=== PATIENT | male | born 1955 | race African-American/Black ===

== ENCOUNTER 2016-04-07 21:40 | Emergency (ER) | payer MEDICARE, MEDICAID ==
[2016-04-07] MEDS ORDERED: ASPIRIN 81 MG TABLET, CHEWABLE PO ONE (21:48)
--- NOTE | 2016-04-07 21:51 | ER Document Report ---
ED Medical Screen (RME) - General Stated Complaint: CHEST PAIN Time seen by provider: 21:50 Mode of Arrival: Medic Information source: Patient Notes: 60-year-old smoker, hypertensive, hyperlipidemic male called EMS after drinking alcohol today and sleeping for 4 hours because he woke up with right sided upper chest pain. It radiated to his central part of his chest when he arrived in the ER. History of CO with stents. TRAVEL OUTSIDE OF THE [place] IN LAST 30 DAYS: No - Related Data Allergies/Adverse Reactions: codeine Allergy (Verified 11/30/15 20:03) Past Medical History - Past Medical History Cardiac Medical History: Reports: Hx Hypercholesterolemia, Hx Hypertension Denies: Hx Coronary Artery Disease, Hx Heart Attack Pulmonary Medical History: Reports: Hx Pneumonia Denies: Hx Asthma, Hx Bronchitis, Hx COPD Neurological Medical History: Denies: Hx Cerebrovascular Accident, Hx Seizures GI Medical History: Reports: Hx Cirrhosis Musculoskeltal Medical History: Reports Hx Arthritis - Hands, arms Traumatic Medical History: Reports: Hx Fractures Past Surgical History: Reports: Hx Cardiac Catheterization, Hx Orthopedic Surgery - bilat arms - Immunizations Immunizations up to date: Yes Hx Diphtheria, Pertussis, Tetanus Vaccination: Yes
[2016-04-07 23:01] LABS: ABSOLUTE EOSINOPHILS # (AUTO) 0.1 10^3/uL (0.0-0.6); ABSOLUTE LYMPHOCYTES (AUTO) 1.8 10^3/uL (0.5-4.7); ABSOLUTE MONOCYTES (AUTO) 0.5 10^3/uL (0.1-1.4); ABSOLUTE NEUT (AUTO) 4.1 10^3/uL (1.7-8.2); BASOPHILS % (AUTO) 0.6 % (0-2); EOSINOPHILS % (AUTO) 1.3 % (0-6); HEMATOCRIT 36.3 % (37.9-51.0); HEMOGLOBIN 11.9 g/dL (13.5-17.0); HGB HCT DIFFERENCE -0.6; LYMPHOCYTES % (AUTO) 27.8 % (13-45); MEAN CORPUSCULAR HEMOGLOBIN 30.9 pg (27.0-33.4); MEAN CORPUSCULAR HGB CONC 32.7 g/dL (32.0-36.0); MEAN CORPUSCULAR VOLUME 95 fl (80-97); MONOCYTES % (AUTO) 8.3 % (3-13); RED BLOOD COUNT 3.85 10^6/uL (4.35-5.55); WHITE BLOOD COUNT 6.6 10^3/uL (4.0-10.5)
[2016-04-07 23:22] LABS: APPEARANCE,URINE CLEAR; BILIRUBIN,URINE NEGATIVE (NEGATIVE); GLUCOSE, URINE NEGATIVE (NEGATIVE); KETONES,URINE NEGATIVE (NEGATIVE); LEUKOCYTE ESTERASE,URINE NEGATIVE (NEGATIVE); NITRITE,URINE NEGATIVE (NEGATIVE); PROTEIN,URINE NEGATIVE (NEGATIVE); UROBILINOGEN,URINE NEGATIVE mg/dL (<2.0)
[2016-04-07 23:23] LABS: ALANINE AMINOTRANSFERASE 31 U/L (21-72); ALKALINE PHOSPHATASE 87 U/L (38-126); ANION GAP 12 (5-19); ASPARTATE AMINO TRANSFERASE 37 U/L (17-59); BILIRUBIN,TOTAL 0.4 mg/dL (0.2-1.3); BLOOD UREA NITROGEN 12 mg/dL (7-20); CALCIUM 9.3 mg/dL (8.4-10.2); CARBON DIOXIDE 25 mmol/L (22-30); CHLORIDE 104 mmol/L (98-107); CREATINE KINASE 232 U/L (55-170); CREATININE RESULT 0.78 mg/dL (0.52-1.25); GLUCOSE 76 mg/dL (75-110); LIPASE 61.8 U/L (23-300); POTASSIUM 4.5 mmol/L (3.6-5.0); SODIUM 140.5 mmol/L (137-145)
[2016-04-07 23:26] LABS: ALCOHOL < 10 mg/dL (NONE DETECTED)
[2016-04-07 23:34] LABS: CREATINE KINASE MB 0.92 ng/mL (<4.55)
[2016-04-07 23:37] LABS: URINE BARBITURATES SCREEN NEGATIVE; URINE METHADONE SCREEN NEGATIVE; URINE PHENCYCLIDINE SCREEN NEGATIVE
[2016-04-07 23:39] LABS: TROPONIN I < 0.012 ng/mL
[2016-04-08] MEDS ORDERED: METOCLOPRAMIDE HCL ORAL SOLN 10 MG/10 ML UDCUP PO ONE (00:38)
[2016-04-08] MEDS ORDERED: LIDOCAINE 2% VISCOUS SOLN 20 ML UDCUP PO ONE (00:38)
[2016-04-08] MEDS ORDERED: MAG HYDROX/AL HYDROX/SIMETH SUSP 30 ML UDCUP PO ONE (00:38)
--- NOTE | 2016-04-08 01:45 | ER Document Report ---
ED General - General Chief Complaint: Shoulder Pain Stated Complaint: CHEST PAIN Mode of Arrival: Medic Notes: Patient is a 60-year-old male with past medical history of coronary artery disease and hypertension who presents with an episode of chest pain that started approximately 6 hours prior to arrival. States that he was drinking heavily today, went to sleep and woke up with some right-sided chest pain that became retrosternal. This has spontaneously resolved at the time of my evaluation. States that when it was present was a dull, throbbing pain. Nothing improves or worsens the pain. States that he has pain like this on a near daily basis but that he has ran out of both his isosorbide dinitrate as well as nitroglycerin. States if he had had these medications he would not have come in to the emergency department. He has not seen his primary care physician regarding today's concerns. He denies any associated shortness of breath, nausea, vomiting, or diaphoresis. No history of DVT or pulmonary embolus. No history of aortic dissection or aneurysm TRAVEL OUTSIDE OF THE [place] IN LAST 30 DAYS: No - Related Data Allergies/Adverse Reactions: codeine Allergy (Verified 11/30/15 20:03) Past Medical History - General Information source: Patient - Social History Smoking Status: Current Every Day Smoker Frequency of alcohol use: Heavy Drug Abuse: None Lives with: Spouse/Significant other Family History: CAD Patient has suicidal ideation: No Patient has homicidal ideation: No - Past Medical History Cardiac Medical History: Reports: Hx Hypercholesterolemia, Hx Hypertension Denies: Hx Coronary Artery Disease, Hx Heart Attack Pulmonary Medical History: Reports: Hx Pneumonia Denies: Hx Asthma, Hx Bronchitis, Hx COPD Neurological Medical History: Denies: Hx Cerebrovascular Accident, Hx Seizures Renal/ Medical History: Denies: Hx Peritoneal Dialysis GI Medical History: Reports: Hx Cirrhosis Musculoskeltal Medical History: Reports Hx Arthritis - Hands, arms Traumatic Medical History: Reports: Hx Fractures Past Surgical History: Reports: Hx Cardiac Catheterization, Hx Orthopedic Surgery - bilat arms - Immunizations Immunizations up to date: Yes Hx Diphtheria, Pertussis, Tetanus Vaccination: Yes Review of Systems - Review of Systems Notes: Constitutional: Negative for fever. HENT: Negative for sore throat. Eyes: Negative for visual changes. Cardiovascular: Positive for chest pain that is now resolved Respiratory: Negative for shortness of breath. Gastrointestinal: Negative for abdominal pain, vomiting or diarrhea. Genitourinary: Negative for dysuria. Musculoskeletal: Negative for back pain. Skin: Negative for rash. Neurological: Negative for headaches, weakness or numbness. 10 point ROS negative except as marked above and in HPI. Physical Exam - Vital signs Vitals: Temp Pulse Resp BP Pulse Ox 98.2 F 56 L 18 160/75 H 97 04/07/16 21:48 04/07/16 21:48 04/07/16 21:48 04/07/16 21:48 04/07/16 21:48 Interpretation: Hypertensive, Bradycardic Notes: PHYSICAL EXAMINATION: GENERAL: Well-appearing, well-nourished and in no acute distress. HEAD: Atraumatic, normocephalic. EYES: Pupils equal round and reactive to light, extraocular movements intact, sclera anicteric, conjunctiva are normal. ENT: nares patent, oropharynx clear without exudates. Moist mucous membranes. NECK: Normal range of motion, supple without lymphadenopathy LUNGS: Breath sounds clear to auscultation bilaterally and equal. No wheezes rales or rhonchi. HEART: Regular rate and rhythm without murmurs ABDOMEN: Soft, nontender, normoactive bowel sounds. No guarding, no rebound. No masses appreciated. EXTREMITIES: Normal range of motion, no pitting or edema. No cyanosis. NEUROLOGICAL: No focal neurological deficits. Moves all extremities spontaneously and on command. PSYCH: Normal mood, normal affect. SKIN: Warm, Dry, normal turgor, no rashes or lesions noted. Course - Re-evaluation Re-evalutation: 04/08/16 01:43 Presentation of chest pain in an otherwise well appearing patient. Low clinical suspicion for ACS given clinical history, exam, EKG without ST elevations or depressions, and negative initial troponin. HEART score less than or equal to 3. PE also seems unlikely given clinical history, absence of tachycardia or dyspnea. CXR without evidence of pneumothorax or pneumonia. No widened mediastinum. Aortic dissection also seems unlikely given history, symmetric pulses, CXR, and vitals. Given reassuring evaluation, will plan for discharge home at this time with return precautions and follow-up recommendations. HEART score: H:0 E:0 A:0 R:2 T:0 - Vital Signs Vital signs: Temp Pulse Resp BP Pulse Ox 98.2 F 56 L 18 160/75 H 97 01/21/17 21:48 04/07/16 21:48 04/07/16 21:48 04/07/16 21:48 04/07/16 21:48 - Laboratory Result Diagrams: 04/07/16 22:54 04/07/16 22:54 Laboratory results interpreted by me: 04/07/16 04/07/16 22:54 22:54 RBC 3.85 L Hgb 11.9 L Hct 36.3 L RDW 15.0 H Creatine Kinase 232 H - Diagnostic Test Radiology reviewed: Image reviewed, Reports reviewed Radiology results interpreted by me: 04/08/16 01:39 Chest x-ray: No acute infiltrate - EKG Interpretation by Me Additional EKG results interpreted by me: 04/08/16 01:39 Sinus bradycardia. Rate 55. No ST elevations or depressions. QTc 394. Discharge - Discharge Clinical Impression: Chest pain Qualifiers: Chest pain type: unspecified Qualified Code(s): R07.9 - Chest pain, unspecified Condition: Good Disposition: HOME, SELF-CARE Additional Instructions: You were seen today for chest pain. The exact cause of your pain is unclear. However, based on your cardiac enzyme testing, chest x-ray, and EKG it does not appear that it is from an immediately life-threatening cause at this time. Although your testing here is normal is critical that you follow-up with your primary care physician for continued evaluation of this chest pain and possible stress testing. I recommended you see your physician within the next 24-48 hours to be evaluated for consideration of a stress test. Please return to emergency department immediately if you have worsening of your chest pain, shortness of breath, vomiting, become unable to exert yourself due to pain or difficulty breathing, you pass out, or have any pain that radiates into your arms, jaw, or back. Please also return if you have any additional symptoms that are concerning to you. Prescriptions: Isosorbide Mononitrate [Imdur 60 mg Tablet.er] 60 mg PO DAILY #30 tab.er.24h Nitroglycerin 0.4 mg SL PRN PRN #30 tab.subl PRN Reason: Referrals: ASHLEE WATERS MD [Primary Care Provider] - Follow up in 3-5 days
[2016-04-08 03:30] VITALS: BP 160/81
--- NOTE | 2016-04-08 10:07 | EKG REPORT ---
SEVERITY:- BORDERLINE ECG - SINUS RHYTHM BORDERLINE T ABNORMALITIES, INFERIOR LEADS BORDERLINE ST ELEVATION, ANTERIOR LEADS : Confirmed by: Cezar Ngo MD 08-Apr-2016 10:06:53
== END 2016-04-08 03:15 | disposition home or self-care (01) ==
LOC: ER 21:40
DX: R07.9 Chest pain, unspecified (principal); M25.519 Pain in unspecified shoulder; I25.10 Atherosclerotic heart disease of native coronary artery without angina pectoris; I10 Essential (primary) hypertension; F17.210 Nicotine dependence, cigarettes, uncomplicated
CPT/HCPCS: 93005; 99285; 36415; 82553; 80307 ×2; 82550; 83690; 85025; 80053; 81001; 84484; 71010; 93010; J3490; A9270

== ENCOUNTER 2016-04-11 09:09 | Observation (INO) | payer MEDICARE, MEDICAID ==
[2016-04-11 09:55] LABS: ABSOLUTE LYMPHOCYTES (AUTO) 1.1 10^3/uL (0.5-4.7); ABSOLUTE MONOCYTES (AUTO) 0.6 10^3/uL (0.1-1.4); ABSOLUTE NEUT (AUTO) 7.6 10^3/uL (1.7-8.2); BASOPHILS % (AUTO) 0.5 % (0-2); EOSINOPHILS % (AUTO) 0.2 % (0-6); HEMATOCRIT 37.1 % (37.9-51.0); HEMOGLOBIN 11.9 g/dL (13.5-17.0); HGB HCT DIFFERENCE -1.4; MEAN CORPUSCULAR HEMOGLOBIN 30.7 pg (27.0-33.4); MEAN CORPUSCULAR VOLUME 96 fl (80-97); MONOCYTES % (AUTO) 6.6 % (3-13); RED BLOOD COUNT 3.87 10^6/uL (4.35-5.55); RED CELL DISTRIBUTION WIDTH 14.7 % (11.5-14.0); SEGMENTED NEUTROPHILS % (AUTO) 80.7 % (42-78); WHITE BLOOD COUNT 9.4 10^3/uL (4.0-10.5)
[2016-04-11 10:06] LABS: ALANINE AMINOTRANSFERASE 41 U/L (21-72); ALBUMIN 3.4 g/dL (3.5-5.0); ALKALINE PHOSPHATASE 97 U/L (38-126); ANION GAP 12 (5-19); ASPARTATE AMINO TRANSFERASE 42 U/L (17-59); BILIRUBIN,TOTAL 0.5 mg/dL (0.2-1.3); BLOOD UREA NITROGEN 17 mg/dL (7-20); CALCIUM 8.4 mg/dL (8.4-10.2); CARBON DIOXIDE 20 mmol/L (22-30); CHLORIDE 107 mmol/L (98-107); CREATINE KINASE 280 U/L (55-170); CREATININE RESULT 0.86 mg/dL (0.52-1.25); GLUCOSE 73 mg/dL (75-110); POTASSIUM 4.6 mmol/L (3.6-5.0); SODIUM 138.7 mmol/L (137-145); TOTAL PROTEIN 6.8 g/dL (6.3-8.2)
[2016-04-11 10:14] LABS: CREATINE KINASE MB 1.01 ng/mL (<4.55)
[2016-04-11 10:19] LABS: TROPONIN I < 0.012 ng/mL
--- NOTE | 2016-04-11 10:44 | ER Document Report ---
Doctor's Note Notes: 04/11/16 10:44 Patient was presented to me by the advanced practitioner, we discussed the patient's case imaging and lab work concerns. Patient was evaluated by myself and I agree with the providers care plan
--- NOTE | 2016-04-11 10:47 | ER Document Report ---
ED Cardiac - General Chief Complaint: Chest Pain > 30 Stated Complaint: CHEST PAIN Notes: Patient is a 60 year old male complaining of sudden onset chest pain this morning. Patient has a known history of CAD, HTN, HLD and cardiac cath within the past 9 months with coronary stent placement. Unaware of stent locations as it was done at [facility]. States that he had sudden onset chest pain at 645 this morning lasting about an hour and a half located in the right that his chest and related to the substernal area and persisted for about an hour and half described as a pressure. He states that he has a prescription for nitroglycerin. He has not had it filled since he cannot afford it so he didn't have anything to take it called 911. EMS arrived on the scene gave him 2 nitroglycerin and 224 mg of aspirin to which she states that his chest pain responded positively they also put on Nitropaste on his chest when she sits is controlling his chest pain. Patient was previously seen here on 06/05 for chest pain that was discharged home Past medical history significant for coronary artery disease. States that's over the summer and had a stress test and cardiac catheter with stent placement. High blood pressure, high cholesterol, pneumonia, cirrhosis, osteoarthritis Past surgical history significant for cardiac catheter 2, bilateral arms for previous fractures Social history significant for [id number], daily alcohol use, social marijuana use. Primary care is Dr. Waters TRAVEL OUTSIDE OF THE [place] IN LAST 30 DAYS: No - Related Data Allergies/Adverse Reactions: codeine Allergy (Verified 04/11/16 09:22) Past Medical History - General Information source: Patient - Social History Smoking Status: Current Every Day Smoker Family History: CAD - Past Medical History Cardiac Medical History: Reports: Hx Hypercholesterolemia, Hx Hypertension Denies: Hx Coronary Artery Disease, Hx Heart Attack Pulmonary Medical History: Reports: Hx Pneumonia Denies: Hx Asthma, Hx Bronchitis, Hx COPD Neurological Medical History: Denies: Hx Cerebrovascular Accident, Hx Seizures Renal/ Medical History: Denies: Hx Peritoneal Dialysis GI Medical History: Reports: Hx Cirrhosis Musculoskeltal Medical History: Reports Hx Arthritis - Hands, arms Traumatic Medical History: Reports: Hx Fractures Past Surgical History: Reports: Hx Cardiac Catheterization, Hx Orthopedic Surgery - bilat arms - Immunizations Immunizations up to date: Yes Hx Diphtheria, Pertussis, Tetanus Vaccination: Yes Review of Systems - Review of Systems Constitutional: No symptoms reported EENT: No symptoms reported Cardiovascular: See HPI Respiratory: No symptoms reported Gastrointestinal: No symptoms reported Genitourinary: No symptoms reported Male Genitourinary: No symptoms reported Musculoskeletal: No symptoms reported Skin: No symptoms reported Hematologic/Lymphatic: No symptoms reported Neurological/Psychological: No symptoms reported Physical Exam - Vital signs Vitals: Resp Pulse Ox 16 98 04/11/16 09:15 04/11/16 09:15 - Notes Notes: PHYSICAL EXAM GENERAL: Alert, interacts well. HEAD: Normocephalic, atraumatic. EYES: Pupils equal, round, and reactive to light. Extraocular movements intact. ENT: Oral mucosa moist, tongue midline. Poor dentition NECK: Full range of motion. Supple. Trachea midline. LUNGS: Clear to auscultation bilaterally, no wheezes, rales, or rhonchi. No respiratory distress. HEART: Mild chest pain to palpation of the sternum. The patient denies this is his chest pain that he's been having. Regular rate and rhythm. No murmurs, gallops, or rubs. ABDOMEN: Soft, nondistended, nontender. No guarding, rebound, or rigidity.. Bowel sounds present in all 4 quadrants. EXTREMITIES: Moves all 4 extremities spontaneously. No edema, radial and dorsalis pedis pulses 2/4 bilaterally. No cyanosis. NEUROLOGICAL: Alert and oriented x3. Normal speech. PSYCH: Normal affect, normal mood. SKIN: Warm, dry, normal turgor. No rashes or lesions noted. Course - Re-evaluation Re-evalutation: 04/11/16 11:06 Chest x-ray without any evidence of any cardiopulmonary process. No evidence of widened mediastinum. No evidence of acute infiltrate Patient is a 60-year-old male who is hemodynamically stable, no acute distress and afebrile. Patient story is consistent with acute coronary syndrome without any EKG changes. Labs have revealed no leukocytosis, anemia. CMP within normal limits and no evidence of elevation in cardiac enzymes. Case discussed with primary care physician Moe who agrees for admission to the hospital for cardiac evaluation. Plan discussed the patient is agreeable. Per [facility] protocol and guidelines, this case was discussed with supervising physician Dr. Brii Iqbal prior to admission - Vital Signs Vital signs: Temp Pulse Resp BP Pulse Ox 12 165/83 H 99 04/11/16 10:01 04/11/16 10:01 04/11/16 10:01 - Laboratory Result Diagrams: 04/11/16 09:37 04/11/16 09:37 Laboratory results interpreted by me: 04/11/16 04/11/16 09:37 09:37 RBC 3.87 L Hgb 11.9 L Hct 37.1 L RDW 14.7 H Seg Neutrophils % 80.7 H Lymphocytes % 12.0 L Carbon Dioxide 20 L Glucose 73 L Creatine Kinase 280 H Albumin 3.4 L - Diagnostic Test Radiology reviewed: Image reviewed, Reports reviewed - EKG Interpretation by Me EKG shows normal: Sinus rhythm. abnormal: ST-T Waves Rate: Normal Rhythm: NSR When compared to previous EKG there are: No significant change - Consults Dr. Waters Reason for consultation: 04/11/16 11:08 Hospital admission Consulted provider: will come to ER Discharge - Discharge Clinical Impression: Chest pain Condition: Stable Disposition: ADMITTED INPATIENT Admitting Provider: Moe Unit Admitted: Telemetry Referrals: ASHLEE WATERS MD [Primary Care Provider] - Follow up as needed
[2016-04-11 12:24] LABS: PROTHROMBIN TIME 13.4 SEC (11.4-15.4)
[2016-04-11 12:25] LABS: PARTIAL THROMBOPLASTIN TIME 30.5 SEC (23.5-35.8)
[2016-04-11] MEDS ORDERED: ENOXAPARIN SODIUM INJ 40 MG/0.4 ML DISP.SYRIN SUBCUT ONE ×2 (13:00→18:30)
[2016-04-11 13:49] LABS: CREATININE RESULT 0.84 mg/dL (0.52-1.25)
--- NOTE | 2016-04-11 15:00 | EKG REPORT ---
SEVERITY:- ABNORMAL ECG - SINUS RHYTHM BORDERLINE LEFT AXIS DEVIATION ABNRM R PROG, CONSIDER ASMI OR LEAD PLACEMENT BORDERLINE T ABNORMALITIES, INFERIOR LEADS : Confirmed by: Lilliana Steel MD 11-Apr-2016 14:58:44
[2016-04-11 16:13] LABS: HEMATOCRIT 36.7 % (37.9-51.0); HEMOGLOBIN 11.9 g/dL (13.5-17.0); MEAN CORPUSCULAR HEMOGLOBIN 30.8 pg (27.0-33.4); MEAN CORPUSCULAR HGB CONC 32.5 g/dL (32.0-36.0); MEAN CORPUSCULAR VOLUME 95 fl (80-97); RED BLOOD COUNT 3.86 10^6/uL (4.35-5.55); RED CELL DISTRIBUTION WIDTH 14.5 % (11.5-14.0); WHITE BLOOD COUNT 8.1 10^3/uL (4.0-10.5)
[2016-04-11 16:43] LABS: CREATINE KINASE MB 0.89 ng/mL (<4.55); TROPONIN I 0.013 ng/mL
[2016-04-11] MEDS ORDERED: NITROGLYCERIN 0.4 MG/TAB 25 TAB/BOTTLE SL PRN (18:15)
[2016-04-11] MEDS ORDERED: OXYCODONE-ACETAMINOPHEN 5-325 MG TABLET PO PRN (18:15)
[2016-04-11] MEDS ORDERED: CLOPIDOGREL BISULFATE 75 MG TABLET PO ONE (18:45)
[2016-04-11] MEDS ORDERED: ATORVASTATIN CALCIUM 80 MG TABLET PO SCH (22:00)
[2016-04-11] MEDS ORDERED: CLOPIDOGREL BISULFATE 75 MG TABLET ONE (22:23)
[2016-04-11 23:16] LABS: TROPONIN I < 0.012 ng/mL
[2016-04-12 05:19] LABS: CREATINE KINASE MB 0.67 ng/mL (<4.55)
[2016-04-12 05:20] LABS: TROPONIN I < 0.012 ng/mL
[2016-04-12] MEDS ORDERED: ENOXAPARIN SODIUM INJ 40 MG/0.4 ML DISP.SYRIN SUBCUT SCH (08:00)
[2016-04-12] MEDS ORDERED: CLOPIDOGREL BISULFATE 75 MG TABLET PO SCH (10:00)
[2016-04-12 10:21] VITALS: BP 169/95
--- NOTE | 2016-04-12 18:57 | PDOC H&P ---
History of Present Illness Admission Date/PCP: 04/11/16 12:02 ASHLEE WATERS, History of Present Illness: CAROLINE FLORES is a 60 year old male, he has history of coronary artery disease, he came to the emergency room because of chest pain, the chest pain is non-discrept it was not provoked by exertion or emotion. He was seen in the emergency room and evaluated. Because of history of coronary artery disease emergency room providers want him admitted for evaluation and observation of his symptoms. Past Medical History Cardiac Medical History: Reports: Coronary Artery Disease, Hyperlipidema, Hypertension Pulmonary Medical History: Reports: Bronchitis, Chronic Obstructive Pulmonary Disease (COPD), Pneumonia GI Medical History: Reports: Cirrhosis Musculoskeltal Medical History: Reports: Arthritis - Hands, arms Past Surgical History Past Surgical History: Reports: Cardiac Catheterization, Orthopedic Surgery - bilat arms Social History Smoking Status: Current Every Day Smoker Cigarettes Packs Per Day: 1 Number of Years Smokin Last Time Smoked: 04/11/16 Frequency of Alcohol Use: Occasional Hx Recreational Drug Use: Yes Drugs: Marijuana Hx Prescription Drug Abuse: No Family History Family History: CAD Parental Family History Reviewed: Yes Children Family History Reviewed: Yes Sibling(s) Family History Reviewed.: Yes Medication/Allergy Home Medications: Atorvastatin Calcium [Lipitor 80 mg Tablet] 80 mg PO DAILY 04/11/16 Clopidogrel Bisulfate [Clopidogrel] 75 mg PO DAILY 04/11/16 Nitroglycerin [Nitrostat] 0.4 mg SL ASDIR PRN 04/11/16 Oxycodone HCl [Oxycodone HCl] 5 mg PO Q8 04/11/16 Oxycodone HCl/Acetaminophen [Oxycodone-Acetaminophen 5-325] 1 tab PO Q4HP PRN Allergies/Adverse Reactions: codeine Allergy (Verified 04/11/16 09:22) Review of Systems Eyes: ABSENT: visual disturbances Ears: ABSENT: hearing changes Cardiovascular: PRESENT: chest pain Respiratory: ABSENT: cough, hemoptysis Gastrointestinal: ABSENT: abdominal pain, constipation, diarrhea, hematemesis, hematochezia, nausea, vomiting Genitourinary: ABSENT: dysuria, hematuria Musculoskeletal: ABSENT: joint swelling Integumentary: ABSENT: rash, wounds Neurological: ABSENT: abnormal gait, abnormal speech, confusion, dizziness, focal weakness, syncope Psychiatric: ABSENT: anxiety, depression, homidical ideation, suicidal ideation Endocrine: ABSENT: cold intolerance, heat intolerance, menstrual abnormalities, polydipsia, polyuria Hematologic/Lymphatic: ABSENT: easy bleeding, easy bruising, lymphadenopathy Physical Exam Vital Signs: Temp Pulse Resp BP Pulse Ox 97.8 F 61 18 169/95 H 100 04/12/16 09:00 04/12/16 09:00 04/12/16 09:00 04/12/16 09:00 04/12/16 09:00 Intake & Output 04/11/16 04/12/16 04/13/16 06:59 06:59 06:59 Intake Total 254 Output Total 2 Balance 252 Weight 60.9 kg General appearance: PRESENT: no acute distress Eye exam: PRESENT: conjunctiva pink, EOMI, PERRLA Neck exam: PRESENT: full ROM Cardiovascular exam: PRESENT: RRR, +S1, +S2 Vascular exam: PRESENT: normal capillary refill GI/Abdominal exam: PRESENT: normal bowel sounds, soft Rectal exam: PRESENT: deferred Neurological exam: PRESENT: alert. ABSENT: motor sensory deficit Results Laboratory Results: 04/11/16 15:40 04/11/16 13:28 04/11/16 04/11/16 04/12/16 15:40 22:25 04:29 CK-MB (CK-2) 0.89 0.80 0.67 Troponin I 0.013 < 0.012 < 0.012 Impressions: Chest X-Ray 04/11/16 09:16 IMPRESSION: NO ACUTE RADIOGRAPHIC FINDING IN THE CHEST. Assessment & Plan - Diagnosis (1) Chest pain Qualifiers: Chest pain type: unspecified Qualified Code(s): R07.9 - Chest pain, unspecified Is this a current diagnosis for this admission?: YesPlan: Patient is admitted for observation (2) Coronary artery disease Qualifiers: Coronary Disease-Associated Artery/Lesion type: [place] artery [place] vs. transplanted heart: [place] heart Associated angina: without angina Qualified Code(s): I25.10 - Atherosclerotic heart disease of [place] coronary artery without angina pectoris
--- NOTE | 2016-04-12 19:02 | PDOC DISCHARGE SUMMARY ---
General - Admit/Disc Date/PCP Admission Date/Primary Care Provider: 04/11/16 12:02 SAMANTHADARLYN WATERS, Discharge Date: 04/12/16 - Discharge Diagnosis (1) Chest pain Is this a current diagnosis for this admission?: Yes (2) Coronary artery disease Is this a current diagnosis for this admission?: Yes - Additional Information Home Medications: Atorvastatin Calcium [Lipitor 80 mg Tablet] 80 mg PO DAILY 04/11/16 Clopidogrel Bisulfate [Clopidogrel] 75 mg PO DAILY 04/11/16 Nitroglycerin [Nitrostat] 0.4 mg SL ASDIR PRN 04/11/16 Oxycodone HCl [Oxycodone HCl] 5 mg PO Q8 04/11/16 Oxycodone HCl/Acetaminophen [Oxycodone-Acetaminophen 5-325] 1 tab PO Q4HP PRN History of Present Illness History of Present Illness: CAROLINE FLORES is a 60 year old male, he has history of coronary artery disease, he came to the emergency room because of chest pain, the chest pain is non-discrept it was not provoked by exertion or emotion. He was seen in the emergency room and evaluated. Because of history of coronary artery disease emergency room providers want him admitted for evaluation and observation of his symptoms. Hospital Course Hospital Course: Patient was admitted for chest pain evaluation, 3 sets of cardiac enzymes were negative for acute NE, he was supposed to have a nuclear stress test, but he left AGAINST MEDICAL ADVICE, he actually eloped from the hospital. Physical Exam Vital Signs: Temp Pulse Resp BP Pulse Ox 97.8 F 61 18 169/95 H 100 04/12/16 09:00 04/12/16 09:00 04/12/16 09:00 04/12/16 09:00 04/12/16 09:00 Intake & Output 04/11/16 04/12/16 04/13/16 06:59 06:59 06:59 Intake Total 254 Output Total 2 Balance 252 Weight 60.9 kg Physical Exam: Physical examination was not done. On discharge, because patient left before he was seen ,he eloped Results Laboratory Results: 04/11/16 15:40 04/11/16 13:28 04/11/16 04/11/16 04/12/16 15:40 22:25 04:29 CK-MB (CK-2) 0.89 0.80 0.67 Troponin I 0.013 < 0.012 < 0.012 Impressions: Chest X-Ray 04/11/16 09:16 IMPRESSION: NO ACUTE RADIOGRAPHIC FINDING IN THE CHEST.
== END 2016-04-12 09:00 | disposition left against medical advice (07) ==
LOC: ER 09:09 → INTOOBSV 11:29 → EH 11:29 → UNDOADMOB 11:29 → EH 12:02 → 5 20:55
PROVIDERS: ADMIT Internal Medicine; ATTEND Internal Medicine
DX: R07.9 Chest pain, unspecified (principal); I25.10 Atherosclerotic heart disease of native coronary artery without angina pectoris; E78.5 Hyperlipidemia, unspecified; I10 Essential (primary) hypertension; J44.9 Chronic obstructive pulmonary disease, unspecified; K74.60 Unspecified cirrhosis of liver; M19.90 Unspecified osteoarthritis, unspecified site; F17.210 Nicotine dependence, cigarettes, uncomplicated; Z82.49 Family history of ischemic heart disease and other diseases of the circulatory system
CPT/HCPCS: 93005; 99285; 36415 ×2; 82553 ×2; 82550; 82565; 85025; 85027; 85610; 85730; 80053; 84484 ×2; 71010; 93010; G0378 ×3; J1650; J3490 ×2; A9270 ×2

== ENCOUNTER 2016-06-13 23:55 | Observation (INO) | payer MEDICARE, MEDICAID ==
[2016-06-14] MEDS ORDERED: ASPIRIN 81 MG TABLET, CHEWABLE PO ONE (07:32)
--- NOTE | 2016-06-14 07:32 | ER Document Report ---
ED Cardiac - General Chief Complaint: Chest Pain Stated Complaint: CHEST PAIN Time seen by provider: 07:22 Mode of Arrival: Ambulatory Information source: Patient Notes: 60 yo htn, hyperlipedemic, smoker, male c/o left retrosternal chest pain since 9 pm last night. Came in by ambulance and was in the waiting room. Hx CAD, 2 Stents (last 14 months ago), daily etoh. no recent uri, no fever. I woke him up. TRAVEL OUTSIDE OF THE [place] IN LAST 30 DAYS: No - Related Data Allergies/Adverse Reactions: codeine Allergy (Verified 04/11/16 09:22) Home Medications: Current Home Medications Aspirin [Aspirin 81 mg Chewable Tablet] 81 mg PO DAILY 06/14/16 [History] Atorvastatin Calcium [Lipitor 80 mg Tablet] 80 mg PO QHS 06/14/16 [History] Clopidogrel Bisulfate [Plavix 75 mg Tablet] 75 mg PO DAILY 06/14/16 [History] Famotidine [Pepcid 20 mg Tablet] 20 mg PO QHS 06/14/16 [History] Gabapentin [Neurontin 300 mg Capsule] 300 mg PO TID 06/14/16 [History] Isosorbide Mononitrate [Imdur 60 mg Tablet.er] 60 mg PO DAILY 06/14/16 [History] Lisinopril/Hydrochlorothiazide [Zestoretic 20-12.5 mg Tablet] 1 tab PO DAILY [History] Metoprolol Tartrate [Lopressor 25 mg Tablet] 25 mg PO BID 06/14/16 [History] Nitroglycerin [Nitrostat 0.4 mg (1/150 Gr) Tabs 25/Bottle] 0.1 mg SL Q5MP PRN [History] Past Medical History - Social History Smoking Status: Current Every Day Smoker Frequency of alcohol use: Heavy Drug Abuse: None Family History: CAD Patient has suicidal ideation: No Patient has homicidal ideation: No - Past Medical History Cardiac Medical History: Reports: Hx Coronary Artery Disease, Hx Hypercholesterolemia, Hx Hypertension Denies: Hx Heart Attack Pulmonary Medical History: Reports: Hx Bronchitis, Hx COPD, Hx Pneumonia Denies: Hx Asthma Neurological Medical History: Denies: Hx Cerebrovascular Accident, Hx Seizures Renal/ Medical History: Denies: Hx Peritoneal Dialysis GI Medical History: Reports: Hx Cirrhosis Musculoskeltal Medical History: Reports Hx Arthritis - Hands, arms Traumatic Medical History: Reports: Hx Fractures Past Surgical History: Reports: Hx Cardiac Catheterization, Hx Orthopedic Surgery - bilat arms - Immunizations Immunizations up to date: Yes Hx Diphtheria, Pertussis, Tetanus Vaccination: Yes Review of Systems - Review of Systems Constitutional: No symptoms reported EENT: No symptoms reported Cardiovascular: See HPI Respiratory: No symptoms reported Gastrointestinal: No symptoms reported Genitourinary: No symptoms reported Male Genitourinary: No symptoms reported Musculoskeletal: No symptoms reported Skin: No symptoms reported Hematologic/Lymphatic: No symptoms reported Neurological/Psychological: No symptoms reported Physical Exam - Vital signs Vitals: Temp Pulse Resp BP Pulse Ox 97.3 F 67 18 150/82 H 99 06/14/16 00:13 06/14/16 00:13 06/14/16 00:13 06/14/16 00:13 06/14/16 00:13 Interpretation: Normal - General General appearance: Appears well, Alert In distress: None - HEENT Head: Normocephalic, Atraumatic Eyes: Normal Conjunctiva: Normal Pupils: PERRL Mucous membranes: Normal Pharynx: Normal Neck: Supple. No: Lymphadenopathy - Respiratory Respiratory status: No respiratory distress Chest status: Nontender Breath sounds: Normal Chest palpation: Normal - Cardiovascular Rhythm: Regular Heart sounds: Normal auscultation Murmur: No - Abdominal Inspection: Normal Distension: No distension Bowel sounds: Normal Tenderness: Nontender Organomegaly: No organomegaly - Back Back: Normal, Nontender. No: CVA tenderness - Extremities General upper extremity: Normal inspection, Nontender, Normal color, Normal ROM , Normal temperature General lower extremity: Normal inspection, Nontender, Normal color, Normal ROM , Normal temperature, Normal weight bearing. No: Sofya's sign - Neurological Neuro grossly intact: Yes Cognition: Normal Orientation: AAOx4 Franc Coma Scale Eye Opening: Spontaneous Preemption Coma Scale Verbal: Oriented Franc Coma Scale Motor: Obeys Commands Franc Coma Scale Total: 15 Speech: Normal Motor strength normal: LUE, RUE, LLE, RLE Sensory: Normal - Psychological Associated symptoms: Normal affect, Normal mood - Skin Skin Temperature: Warm Skin Moisture: Dry Skin Color: Normal Skin irregularity: negative: Rash Course - Re-evaluation Re-evalutation: 06/14/16 07:[address] Mcfadden notified that the patient has been in the waiting room and now in room 15 with no aspirin or labs done. He checked into the emergency room at 2355 last night. 06/14/16 10:[address] perez, pt did not get a nuclear stress test that was rec. his last hospitalization when he left against medical advice for dr. lara . 06/14/16 12:[address] lara who will admit to observation telemetry unit. - Vital Signs Vital signs: Temp Pulse Resp BP Pulse Ox 97.6 F 59 L 16 171/99 H 100 06/14/16 17:30 06/14/16 17:30 06/14/16 17:30 06/14/16 17:30 06/14/16 13:30 - Laboratory Result Diagrams: 06/14/16 07:40 06/14/16 07:40 Laboratory results interpreted by me: 06/14/16 06/14/16 07:40 07:40 RBC 3.21 L Hgb 10.2 L Hct 30.1 L RDW 15.2 H Chloride 111 H Creatine Kinase 224 H Total Protein 5.8 L Albumin 3.1 L Discharge - Discharge Clinical Impression: Chest pain Qualifiers: Chest pain type: unspecified Qualified Code(s): R07.9 - Chest pain, unspecified Disposition: ELOPED Admitting Provider: Moe Unit Admitted: Telemetry
--- NOTE | 2016-06-14 08:18 | EKG REPORT ---
SEVERITY:- ABNORMAL ECG - SINUS RHYTHM PROBABLE ANTEROSEPTAL INFARCT, OLD : Confirmed by: Landon mAes 14-Jun-2016 08:17:26
[2016-06-14 08:29] LABS: ABSOLUTE EOSINOPHILS # (AUTO) 0.1 10^3/uL (0.0-0.6); ABSOLUTE LYMPHOCYTES (AUTO) 1.5 10^3/uL (0.5-4.7); ABSOLUTE MONOCYTES (AUTO) 0.6 10^3/uL (0.1-1.4); BASOPHILS % (AUTO) 0.6 % (0-2); EOSINOPHILS % (AUTO) 2.1 % (0-6); HEMATOCRIT 30.1 % (37.9-51.0); HEMOGLOBIN 10.2 g/dL (13.5-17.0); HGB HCT DIFFERENCE 0.5; LYMPHOCYTES % (AUTO) 28.4 % (13-45); MEAN CORPUSCULAR HEMOGLOBIN 31.7 pg (27.0-33.4); MEAN CORPUSCULAR HGB CONC 33.8 g/dL (32.0-36.0); MEAN CORPUSCULAR VOLUME 94 fl (80-97); MONOCYTES % (AUTO) 11.6 % (3-13); RED BLOOD COUNT 3.21 10^6/uL (4.35-5.55); RED CELL DISTRIBUTION WIDTH 15.2 % (11.5-14.0); SEGMENTED NEUTROPHILS % (AUTO) 57.3 % (42-78); WHITE BLOOD COUNT 5.2 10^3/uL (4.0-10.5)
[2016-06-14] MEDS ORDERED: ACETAMINOPHEN 325 MG TABLET PO ONE (08:30)
[2016-06-14 08:31] LABS: ALANINE AMINOTRANSFERASE 39 U/L (21-72); ALBUMIN 3.1 g/dL (3.5-5.0); ALKALINE PHOSPHATASE 95 U/L (38-126); ANION GAP 7 (5-19); ASPARTATE AMINO TRANSFERASE 44 U/L (17-59); BILIRUBIN,DIRECT 0.3 mg/dL (0.0-0.4); BILIRUBIN,TOTAL 0.3 mg/dL (0.2-1.3); BLOOD UREA NITROGEN 17 mg/dL (7-20); CALCIUM 8.7 mg/dL (8.4-10.2); CARBON DIOXIDE 23 mmol/L (22-30); CHLORIDE 111 mmol/L (98-107); CREATINE KINASE 224 U/L (55-170); GLUCOSE 105 mg/dL (75-110); POTASSIUM 4.6 mmol/L (3.6-5.0); SODIUM 141.4 mmol/L (137-145); TOTAL PROTEIN 5.8 g/dL (6.3-8.2)
[2016-06-14 08:42] LABS: CREATINE KINASE MB 1.06 ng/mL (<4.55)
[2016-06-14 08:55] LABS: TROPONIN I < 0.012 ng/mL
[2016-06-14 12:13] LABS: APPEARANCE,URINE CLEAR; BILIRUBIN,URINE NEGATIVE (NEGATIVE); GLUCOSE, URINE NEGATIVE (NEGATIVE); KETONES,URINE NEGATIVE (NEGATIVE); LEUKOCYTE ESTERASE,URINE NEGATIVE (NEGATIVE); NITRITE,URINE NEGATIVE (NEGATIVE); PROTEIN,URINE NEGATIVE (NEGATIVE); URINE SPECIFIC GRAVITY 1.009; UROBILINOGEN,URINE NEGATIVE mg/dL (<2.0)
[2016-06-14 12:35] LABS: URINE BARBITURATES SCREEN NEGATIVE; URINE METHADONE SCREEN NEGATIVE; URINE OPIATES LOW NEGATIVE; URINE PHENCYCLIDINE SCREEN NEGATIVE
[2016-06-14] MEDS ORDERED: NITROGLYCERIN 0.4 MG/TAB 25 TAB/BOTTLE SL PRN (13:09)
[2016-06-14] MEDS ORDERED: CLOPIDOGREL BISULFATE 75 MG TABLET PO ONE (14:00)
[2016-06-14 14:40] LABS: CREATINE KINASE MB 0.87 ng/mL (<4.55)
[2016-06-14 14:44] LABS: TROPONIN I < 0.012 ng/mL
[2016-06-14 17:53] VITALS: BP 171/99
--- NOTE | 2016-06-14 20:42 | PDOC H&P ---
History of Present Illness Admission Date/PCP: 06/14/16 10:59 History of Present Illness: CAROLINE FLORES is a 60 year old male with history of coronary artery disease , he came to emergency room this morning because of chest pain the chest pain is atypical, he was seen in the emergency room on he was advised to be admitted to the hospital for evaluation, he had 3 sets of cardiac enzymes done and were negative for acute VT. Patient had a history of substance abuse, especially marijuana. The last time was admitted he had eloped from the hospital and the plan is for him to have a stress test done tomorrow hopefully he will stay for this test this time Past Medical History Cardiac Medical History: Reports: Coronary Artery Disease, Myocardial Infarction , Hyperlipidema, Hypertension Pulmonary Medical History: Reports: Bronchitis, Chronic Obstructive Pulmonary Disease (COPD), Pneumonia GI Medical History: Reports: Cirrhosis Musculoskeltal Medical History: Reports: Arthritis - Hands, arms Past Surgical History Past Surgical History: Reports: Cardiac Catheterization, Orthopedic Surgery - bilat arms Social History Smoking Status: Current Every Day Smoker Frequency of Alcohol Use: Occasional Hx Recreational Drug Use: Yes Drugs: Marijuana Hx Prescription Drug Abuse: No - Advance Directive Resuscitation Status: Full Code Family History Family History: CAD Parental Family History Reviewed: Yes Children Family History Reviewed: Yes Sibling(s) Family History Reviewed.: Yes Medication/Allergy Home Medications: Aspirin [Aspirin 81 mg Chewable Tablet] 81 mg PO DAILY 06/14/16 Atorvastatin Calcium [Lipitor 80 mg Tablet] 80 mg PO QHS 06/14/16 Clopidogrel Bisulfate [Plavix 75 mg Tablet] 75 mg PO DAILY 06/14/16 Famotidine [Pepcid 20 mg Tablet] 20 mg PO QHS 06/14/16 Gabapentin [Neurontin 300 mg Capsule] 300 mg PO TID 06/14/16 Isosorbide Mononitrate [Imdur 60 mg Tablet.er] 60 mg PO DAILY 06/14/16 Lisinopril/Hydrochlorothiazide [Zestoretic 20-12.5 mg Tablet] 1 tab PO DAILY Metoprolol Tartrate [Lopressor 25 mg Tablet] 25 mg PO BID 06/14/16 Nitroglycerin [Nitrostat 0.4 mg (1/150 Gr) Tabs 25/Bottle] 0.1 mg SL Q5MP PRN Allergies/Adverse Reactions: codeine Allergy (Verified 04/11/16 09:22) Review of Systems Constitutional: ABSENT: chills, fever(s), headache(s), weight gain, weight loss Eyes: ABSENT: visual disturbances Ears: ABSENT: hearing changes Cardiovascular: PRESENT: chest pain Respiratory: ABSENT: cough, hemoptysis Gastrointestinal: ABSENT: abdominal pain, constipation, diarrhea, hematemesis, hematochezia, nausea, vomiting Genitourinary: ABSENT: dysuria, hematuria Musculoskeletal: ABSENT: joint swelling Integumentary: ABSENT: rash, wounds Neurological: ABSENT: abnormal gait, abnormal speech, confusion, dizziness, focal weakness, syncope Psychiatric: ABSENT: anxiety, depression, homidical ideation, suicidal ideation Endocrine: ABSENT: cold intolerance, heat intolerance, menstrual abnormalities, polydipsia, polyuria Hematologic/Lymphatic: ABSENT: easy bleeding, easy bruising, lymphadenopathy Physical Exam Vital Signs: Temp Pulse Resp BP Pulse Ox 97.6 F 59 L 16 171/99 H 100 06/14/16 17:30 06/14/16 17:30 06/14/16 17:30 06/14/16 17:30 06/14/16 13:30 Intake & Output 06/13/16 06/14/16 06/15/16 06:59 06:59 06:59 Weight 65.317 kg General appearance: PRESENT: no acute distress, well-developed, well-nourished Head exam: PRESENT: atraumatic, normocephalic Eye exam: PRESENT: conjunctiva pink, EOMI, PERRLA Ear exam: PRESENT: normal external ear exam Mouth exam: PRESENT: moist, tongue midline Neck exam: PRESENT: full ROM Respiratory exam: PRESENT: clear to auscultation ericka Cardiovascular exam: PRESENT: RRR, +S1, +S2 Vascular exam: PRESENT: normal capillary refill GI/Abdominal exam: PRESENT: normal bowel sounds, soft Rectal exam: PRESENT: deferred Neurological exam: PRESENT: alert Psychiatric exam: PRESENT: appropriate affect, normal mood Skin exam: PRESENT: dry, intact, warm. ABSENT: cyanosis, rash Results Laboratory Results: 06/14/16 11:34 Urine Color STRAW Urine Appearance CLEAR Urine pH 7.0 Ur Specific [place] 1.009 Urine Protein NEGATIVE Urine Glucose (UA) NEGATIVE Urine Ketones NEGATIVE Urine Blood NEGATIVE Urine Nitrite NEGATIVE Ur Leukocyte Esterase NEGATIVE Urine WBC (Auto) 0 Urine RBC (Auto) 0 06/14/16 06/14/16 06/14/16 12:22 13:35 13:35 Creatine Kinase 224 H CK-MB (CK-2) 0.87 Troponin I < 0.012 < 0.012 Impressions: Chest X-Ray 06/14/16 07:32 IMPRESSION: NO ACUTE RADIOGRAPHIC FINDING IN THE CHEST. Assessment & Plan - Diagnosis (1) Chest pain Qualifiers: Chest pain type: unspecified Qualified Code(s): R07.9 - Chest pain, unspecified Is this a current diagnosis for this admission?: YesPlan: Patient is admitted for observation and management of the chest pain
--- NOTE | 2016-06-14 20:45 | PDOC DISCHARGE SUMMARY ---
General - Admit/Disc Date/PCP Admission Date/Primary Care Provider: 06/14/16 10:59 Discharge Date: 06/14/16 - Discharge Diagnosis (1) Chest pain Is this a current diagnosis for this admission?: Yes - Additional Information Resuscitation Status: Full Code Home Medications: Aspirin [Aspirin 81 mg Chewable Tablet] 81 mg PO DAILY 06/14/16 Atorvastatin Calcium [Lipitor 80 mg Tablet] 80 mg PO QHS 06/14/16 Clopidogrel Bisulfate [Plavix 75 mg Tablet] 75 mg PO DAILY 06/14/16 Famotidine [Pepcid 20 mg Tablet] 20 mg PO QHS 06/14/16 Gabapentin [Neurontin 300 mg Capsule] 300 mg PO TID 06/14/16 Isosorbide Mononitrate [Imdur 60 mg Tablet.er] 60 mg PO DAILY 06/14/16 Lisinopril/Hydrochlorothiazide [Zestoretic 20-12.5 mg Tablet] 1 tab PO DAILY Metoprolol Tartrate [Lopressor 25 mg Tablet] 25 mg PO BID 06/14/16 Nitroglycerin [Nitrostat 0.4 mg (1/150 Gr) Tabs 25/Bottle] 0.1 mg SL Q5MP PRN History of Present Illness History of Present Illness: CAROLINE FLORES is a 60 year old male with history of coronary artery disease , he came to emergency room this morning because of chest pain the chest pain is atypical, he was seen in the emergency room on he was advised to be admitted to the hospital for evaluation, he had 3 sets of cardiac enzymes done and were negative for acute AL. Patient had a history of substance abuse, especially marijuana. The last time was admitted he had eloped from the hospital and the plan is for him to have a stress test done tomorrow hopefully he will stay for this test this time Hospital Course Hospital Course: Patient was admitted today for chest pain evaluation 3 sets of cardiac enzymes were negative for acute AL, he was supposed to have a stress test done tomorrow but he had eloped from the hospital, I went to his room and he was missing he left the hospital without notice Physical Exam Vital Signs: Temp Pulse Resp BP Pulse Ox 97.6 F 59 L 16 171/99 H 100 06/14/16 17:30 06/14/16 17:30 06/14/16 17:30 06/14/16 17:30 06/14/16 13:30 Intake & Output 06/13/16 06/14/16 06/15/16 06:59 06:59 06:59 Weight 65.317 kg Results Laboratory Results: 06/14/16 11:34 Urine Color STRAW Urine Appearance CLEAR Urine pH 7.0 Ur Specific [place] 1.009 Urine Protein NEGATIVE Urine Glucose (UA) NEGATIVE Urine Ketones NEGATIVE Urine Blood NEGATIVE Urine Nitrite NEGATIVE Ur Leukocyte Esterase NEGATIVE Urine WBC (Auto) 0 Urine RBC (Auto) 0 06/14/16 06/14/16 06/14/16 12:22 13:35 13:35 Creatine Kinase 224 H CK-MB (CK-2) 0.87 Troponin I < 0.012 < 0.012 Impressions: Chest X-Ray 06/14/16 07:32 IMPRESSION: NO ACUTE RADIOGRAPHIC FINDING IN THE CHEST. Plan Discharge Plan: Patient eloped from the hospital, he left the hospital without notice
[2016-06-14] MEDS ORDERED: ATORVASTATIN CALCIUM 80 MG TABLET PO SCH (22:00)
[2016-06-15] MEDS ORDERED: CLOPIDOGREL BISULFATE 75 MG TABLET PO SCH (10:00)
== END 2016-06-14 19:21 | disposition left against medical advice (07) ==
LOC: ER 23:55 → EH 06-14 10:59 → 4N 06-14 13:07
PROVIDERS: ADMIT Internal Medicine; ATTEND Internal Medicine
DX: R07.89 Other chest pain (principal); I25.10 Atherosclerotic heart disease of native coronary artery without angina pectoris; I25.2 Old myocardial infarction; I10 Essential (primary) hypertension; E78.5 Hyperlipidemia, unspecified; J44.9 Chronic obstructive pulmonary disease, unspecified; F17.200 Nicotine dependence, unspecified, uncomplicated
CPT/HCPCS: 93005; 99285; 36415; 82553; 82550; 85025; 80053; 81001; 84484; 80307; 71010; 93010; A9270 ×3

== ENCOUNTER 2016-07-17 17:09 | Emergency (ER) | payer MEDICARE, MEDICAID ==
[2016-07-17] MEDS ORDERED: NITROGLYCERIN 2% OINTMENT 1 GM PACKET TP ONE (18:04)
--- NOTE | 2016-07-17 18:04 | ER Document Report ---
ED Cardiac - General Chief Complaint: Chest Pain > 30 Stated Complaint: CHEST PAIN Mode of Arrival: Medic Information source: Patient, Emergency Med Personnel TRAVEL OUTSIDE OF THE [place] IN LAST 30 DAYS: No - HPI Patient complains to provider of: Chest pain Use of: Alcohol - DAILY. denies: Amphetamines, Cocaine, Decongestants Was the onset of pain: Sudden Is the pain a: New problem Chest pain location: Other - MID-STERNAL Quality of pain: Dull Chest pain radiation location: Left shoulder Severity now: Mild Severity at worst: Moderate Chest pain precipitating factors: Physical Exertion - RIDING BIKE Cardiac risk factors: Hypertension, Smoker, Dyslipidemia, Hx DE. denies: Diabetes Positive cardiac history: Yes Associated symptoms: denies: Diaphoresis, Nausea/vomiting, Shortness of breath Exacerbated by: Denies Relieved by: NTG Similar symptoms previously: Yes - WORSE W/ M.I. Recently seen / treated by doctor: No - Related Data Allergies/Adverse Reactions: codeine Allergy (Verified 07/17/16 17:31) Past Medical History - General Information source: Patient - Social History Smoking Status: Current Every Day Smoker Cigarette use (# per day): Yes Chew tobacco use (# tins/day): No Smoking Education Provided: No Frequency of alcohol use: DAILY Drug Abuse: None Lives with: Spouse/Significant other Family History: CAD, Hypertension Patient has suicidal ideation: No Patient has homicidal ideation: No - Past Medical History Cardiac Medical History: Reports: Hx Coronary Artery Disease, Hx Hypercholesterolemia, Hx Hypertension Denies: Hx Heart Attack Pulmonary Medical History: Reports: Hx Bronchitis, Hx COPD, Hx Pneumonia Denies: Hx Asthma EENT Medical History: Reports: None Neurological Medical History: Reports: None. Denies: Hx Cerebrovascular Accident, Hx Seizures Endocrine Medical History: Reports: None Renal/ Medical History: Reports: None. Denies: Hx Peritoneal Dialysis Malignancy Medical History: Reports None GI Medical History: Reports: Hx Cirrhosis Musculoskeltal Medical History: Reports Hx Arthritis - Hands, arms Psychiatric Medical History: Reports: None Traumatic Medical History: Reports: Hx Fractures Past Surgical History: Reports: Hx Cardiac Catheterization, Hx Orthopedic Surgery - bilat arms - Immunizations Immunizations up to date: Yes Hx Diphtheria, Pertussis, Tetanus Vaccination: Yes Review of Systems - Review of Systems Constitutional: No symptoms reported EENT: No symptoms reported Cardiovascular: See HPI Respiratory: No symptoms reported Gastrointestinal: No symptoms reported Genitourinary: No symptoms reported Musculoskeletal: No symptoms reported Skin: No symptoms reported Neurological/Psychological: No symptoms reported Physical Exam - Vital signs Vitals: Temp Pulse Resp BP Pulse Ox 97.4 F 60 16 139/90 H 99 07/17/16 17:16 07/17/16 17:16 07/17/16 17:16 07/17/16 17:16 07/17/16 17:16 Interpretation: Hypertensive - General General appearance: Appears well, Alert In distress: None - HEENT Head: Normocephalic Eyes: Normal Conjunctiva: Normal Ears: Normal Nasal: Normal Mouth/Lips: Other - VERY POOR DENTITION Mucous membranes: Normal - Respiratory Respiratory status: No respiratory distress Chest status: Nontender Breath sounds: Normal - Cardiovascular Rhythm: Regular Heart sounds: Normal auscultation Murmur: No - Abdominal Inspection: Normal Distension: No distension Bowel sounds: Normal - Back Back: Normal - Extremities General upper extremity: Normal inspection General lower extremity: Normal inspection. No: Tender, Edema - Neurological Neuro grossly intact: Yes Cognition: Normal Orientation: AAOx4 - Psychological Associated symptoms: Normal affect, Normal mood - Skin Skin Temperature: Warm Skin Moisture: Dry Skin Color: Normal Skin Turgor: Elastic Course - Re-evaluation Re-evalutation: 07/17/16 20:07 Patient states he's pain-free at present time. Results of emergency department evaluation discussed with patient and significant other. Overnight stay for rule out DE was recommended. Patient adamantly wishes to go home. He is informed that he may have a heart attack with serious or even fatal outcome if he leaves AGAINST MEDICAL ADVICE. Patient remains steadfast in his decision. - Vital Signs Vital signs: Temp Pulse Resp BP Pulse Ox 97.4 F 60 18 150/89 H 100 07/17/16 17:16 07/17/16 17:16 07/17/16 19:20 07/17/16 19:20 07/17/16 19:20 - Laboratory Result Diagrams: 07/17/16 17:45 07/17/16 17:45 Laboratory results interpreted by me: 07/17/16 07/17/16 17:45 17:45 RBC 3.68 L Hgb 11.2 L Hct 33.5 L RDW 15.0 H Creatine Kinase 306 H - EKG Interpretation by Me EKG shows normal: Sinus rhythm, [place], Intervals, QRS Complexes. abnormal: ST-T Waves - SLIGHT ST ELEV. MID-PRECORD., UNCHANGED. TALL, PEAKED MID-PRECORDIAL T WAVES, UNCHANGED. Rate: Normal Rhythm: NSR Discharge - Discharge Clinical Impression: Chest pain Qualifiers: Chest pain type: unspecified Qualified Code(s): R07.9 - Chest pain, unspecified Coronary artery disease Qualifiers: Coronary Disease-Associated Artery/Lesion type: torres martinez artery [place] vs. transplanted heart: torres martinez heart Associated angina: angina presence unspecified Qualified Code(s): I25.10 - Atherosclerotic heart disease of torres martinez coronary artery without angina pectoris Condition: Stable Disposition: AGAINST MEDICAL ADVICE Instructions: Chest Pain of Unclear Cause ([facility]) Additional Instructions: AT THIS TIME WE CANNOT BE SURE WHAT IS CAUSING YOUR CHEST TO HURT. IT COULD BE A HEART PROBLEM. YOU HAVE BEEN ADVISED TO STAY IN THE HOSPITAL FOR MORE TESTING, BUT YOU DECIDED TO GO HOME INSTEAD. PLEASE UNDERSTAND THAT, WITHOUT A FULL WORK-UP, WE CAN'T BE SURE THAT YOU ARE NOT HEADING FOR ANOTHER HEART ATTACK, ONE THAT MIGHT BE FATAL. USE THE NITROGLYCERIN PATCHES PRESCRIBED FOR YOU DIRECTED. CONTINUE ALL OF YOUR OTHER MEDS USUAL. FOLLOW UP WITH DR. WATERS, CALL OFFICE TOMORROW (SATURDAY) FOR APPOINTMENT. PLEASE RETURN TO E.R. PROMPTLY IF YOU GET WORSE, ANY TIME. Prescriptions: Nitroglycerin [Nitro-Dur 5 mg (0.2 mg/Hr) Transdermal Patch] 1 patch TD QAM # 30 patch Referrals: ASHLEE WATERS MD [Primary Care Provider] - Follow up tomorrow
[2016-07-17 18:05] LABS: ABSOLUTE EOSINOPHILS # (AUTO) 0.1 10^3/uL (0.0-0.6); ABSOLUTE LYMPHOCYTES (AUTO) 2.3 10^3/uL (0.5-4.7); ABSOLUTE MONOCYTES (AUTO) 0.8 10^3/uL (0.1-1.4); ABSOLUTE NEUT (AUTO) 2.9 10^3/uL (1.7-8.2); BASOPHILS % (AUTO) 0.5 % (0-2); EOSINOPHILS % (AUTO) 1.9 % (0-6); HEMATOCRIT 33.5 % (37.9-51.0); HEMOGLOBIN 11.2 g/dL (13.5-17.0); HGB HCT DIFFERENCE 0.1; LYMPHOCYTES % (AUTO) 37.9 % (13-45); MEAN CORPUSCULAR HEMOGLOBIN 30.5 pg (27.0-33.4); MEAN CORPUSCULAR HGB CONC 33.5 g/dL (32.0-36.0); MEAN CORPUSCULAR VOLUME 91 fl (80-97); MONOCYTES % (AUTO) 12.9 % (3-13); RED BLOOD COUNT 3.68 10^6/uL (4.35-5.55); SEGMENTED NEUTROPHILS % (AUTO) 46.8 % (42-78); WHITE BLOOD COUNT 6.1 10^3/uL (4.0-10.5)
[2016-07-17 18:23] LABS: ALANINE AMINOTRANSFERASE 34 U/L (21-72); ALBUMIN 3.8 g/dL (3.5-5.0); ALKALINE PHOSPHATASE 91 U/L (38-126); ANION GAP 12 (5-19); ASPARTATE AMINO TRANSFERASE 33 U/L (17-59); BILIRUBIN,DIRECT 0.3 mg/dL (0.0-0.4); BILIRUBIN,TOTAL 0.5 mg/dL (0.2-1.3); BLOOD UREA NITROGEN 17 mg/dL (7-20); CALCIUM 9.3 mg/dL (8.4-10.2); CARBON DIOXIDE 23 mmol/L (22-30); CHLORIDE 104 mmol/L (98-107); CREATINE KINASE 306 U/L (55-170); CREATININE RESULT 1.02 mg/dL (0.52-1.25); GLUCOSE 82 mg/dL (75-110); POTASSIUM 3.9 mmol/L (3.6-5.0); SODIUM 139.4 mmol/L (137-145)
[2016-07-17 18:35] LABS: CREATINE KINASE MB 1.69 ng/mL (<4.55)
[2016-07-17 18:36] LABS: TROPONIN I < 0.012 ng/mL
--- NOTE | 2016-07-17 19:12 | EKG REPORT ---
SEVERITY:- ABNORMAL ECG - SINUS RHYTHM ABNRM R PROG, CONSIDER ASMI OR LEAD PLACEMENT : Confirmed by: Cezar Ngo MD 17-Jul-2016 19:12:22
[2016-07-17 21:01] LABS: CREATINE KINASE MB 1.53 ng/mL (<4.55); TROPONIN I 0.024 ng/mL
[2016-07-17 22:04] VITALS: BP 157/90
--- NOTE | 2016-07-18 08:19 | EKG REPORT ---
SEVERITY:- BORDERLINE ECG - SINUS RHYTHM BORDERLINE ST ELEVATION, ANTERIOR LEADS : Confirmed by: Cezar Ngo MD 18-Jul-2016 08:18:45
== END 2016-07-17 22:04 | disposition home or self-care (01) ==
LOC: ER 17:09
DX: R07.9 Chest pain, unspecified (principal); I25.10 Atherosclerotic heart disease of native coronary artery without angina pectoris; F17.210 Nicotine dependence, cigarettes, uncomplicated
CPT/HCPCS: 93005; 99285; 36415; 82553; 82550; 85025; 80053; 84484; 71010; 93010; A9270

== ENCOUNTER 2016-08-19 02:38 | Emergency (ER) | payer MEDICARE, MEDICAID ==
[2016-08-19] MEDS ORDERED: ASPIRIN 81 MG TABLET, CHEWABLE PO ONE (02:42)
[2016-08-19 03:21] LABS: ABSOLUTE BASOPHILS # (AUTO) 0.1 10^3/uL (0.0-0.2); ABSOLUTE EOSINOPHILS # (AUTO) 0.1 10^3/uL (0.0-0.6); ABSOLUTE LYMPHOCYTES (AUTO) 2.2 10^3/uL (0.5-4.7); ABSOLUTE MONOCYTES (AUTO) 0.6 10^3/uL (0.1-1.4); ABSOLUTE NEUT (AUTO) 3.2 10^3/uL (1.7-8.2); EOSINOPHILS % (AUTO) 1.9 % (0-6); LYMPHOCYTES % (AUTO) 35.6 % (13-45); MEAN CORPUSCULAR HEMOGLOBIN 30.4 pg (27.0-33.4); MEAN CORPUSCULAR HGB CONC 33.4 g/dL (32.0-36.0); MEAN CORPUSCULAR VOLUME 91 fl (80-97); MONOCYTES % (AUTO) 9.3 % (3-13); RED BLOOD COUNT 3.95 10^6/uL (4.35-5.55); RED CELL DISTRIBUTION WIDTH 16.5 % (11.5-14.0); SEGMENTED NEUTROPHILS % (AUTO) 52.2 % (42-78); WHITE BLOOD COUNT 6.1 10^3/uL (4.0-10.5)
[2016-08-19 03:33] LABS: ALANINE AMINOTRANSFERASE 69 U/L (21-72); ALBUMIN 4.2 g/dL (3.5-5.0); ALKALINE PHOSPHATASE 91 U/L (38-126); ANION GAP 15 (5-19); ASPARTATE AMINO TRANSFERASE 90 U/L (17-59); BILIRUBIN,DIRECT 0.3 mg/dL (0.0-0.4); BILIRUBIN,TOTAL 0.4 mg/dL (0.2-1.3); BLOOD UREA NITROGEN 11 mg/dL (7-20); CALCIUM 9.2 mg/dL (8.4-10.2); CARBON DIOXIDE 20 mmol/L (22-30); CHLORIDE 110 mmol/L (98-107); CREATINE KINASE 385 U/L (55-170); CREATININE RESULT 0.94 mg/dL (0.52-1.25); GLUCOSE 76 mg/dL (75-110); POTASSIUM 4.4 mmol/L (3.6-5.0); SODIUM 144.5 mmol/L (137-145); TOTAL PROTEIN 7.6 g/dL (6.3-8.2)
[2016-08-19 03:50] LABS: CREATINE KINASE MB 1.74 ng/mL (<4.55)
[2016-08-19 03:52] LABS: TROPONIN I < 0.012 ng/mL
--- NOTE | 2016-08-19 05:38 | RADIOLOGY REPORT (SQ) ---
EXAM DESCRIPTION: CHEST SINGLE VIEW COMPLETED DATE/TIME: 08/19/2016 3:28 am REASON FOR STUDY: [facility] COMPARISON: Chest x-ray 07/17/2016. EXAM PARAMETERS: NUMBER OF VIEWS: One view. TECHNIQUE: Single frontal radiographic view of the chest acquired. RADIATION DOSE: NA LIMITATIONS: None. FINDINGS: LUNGS AND PLEURA: A nodular density seen in the left mid lung. No pleural effusion or pne umothorax. MEDIASTINUM AND HILAR STRUCTURES: No masses. Contour normal. HEART AND VASCULAR STRUCTURES: Heart normal in size. No overt vascular congestion. BONES: No acute findings. HARDWARE: None in the chest. IMPRESSION: Nodular density in the left midlung, may be artifact versus pulmonary nodule. CT thorax can help in further evaluation. TECHNICAL DOCUMENTATION: JOB ID: [id number]
--- NOTE | 2016-08-19 08:58 | ER Document Report ---
ED General - General Chief Complaint: Chest Pain Stated Complaint: CHEST PAIN Time Seen by Provider: 08/19/16 06:40 TRAVEL OUTSIDE OF THE [place] IN LAST 30 DAYS: No - HPI Patient complains to provider of: Chest pain Notes: Patient is coming in today for evaluation of chest pain. Patient has multiple visits in the past for chest pain. Patient does have history of alcohol abuse to as well. Upon my evaluation patient was sleeping. Patient has not taken his medication for a few days. Patient states chest pain ongoing for the last 3 days. Denies any recent travel denies any recent antibiotics. Points to the right side of his chest as far as location of the pain. There is no relieving or exacerbating factors. - Related Data Allergies/Adverse Reactions: codeine Allergy (Verified 07/17/16 17:31) Past Medical History - Social History Smoking Status: Unknown if Ever Smoked Family History: CAD, Hypertension - Past Medical History Cardiac Medical History: Reports: Hx Coronary Artery Disease, Hx Hypercholesterolemia, Hx Hypertension Denies: Hx Heart Attack Pulmonary Medical History: Reports: Hx Bronchitis, Hx COPD, Hx Pneumonia Denies: Hx Asthma Neurological Medical History: Denies: Hx Cerebrovascular Accident, Hx Seizures Renal/ Medical History: Denies: Hx Peritoneal Dialysis GI Medical History: Reports: Hx Cirrhosis Musculoskeltal Medical History: Reports Hx Arthritis - Hands, arms Traumatic Medical History: Reports: Hx Fractures Past Surgical History: Reports: Hx Cardiac Catheterization, Hx Orthopedic Surgery - bilat arms - Immunizations Immunizations up to date: Yes Hx Diphtheria, Pertussis, Tetanus Vaccination: Yes Review of Systems - Review of Systems Constitutional: No symptoms reported EENT: No symptoms reported Cardiovascular: Chest pain Respiratory: No symptoms reported Gastrointestinal: No symptoms reported Genitourinary: No symptoms reported Male Genitourinary: No symptoms reported Musculoskeletal: No symptoms reported Skin: No symptoms reported Hematologic/Lymphatic: No symptoms reported Neurological/Psychological: No symptoms reported -: Yes All other systems reviewed and negative Physical Exam - Vital signs Vitals: Temp Pulse Resp BP Pulse Ox 98.0 F 70 21 H 142/91 H 98 08/19/16 02:42 08/19/16 02:42 08/19/16 02:42 08/19/16 02:42 08/19/16 02:42 Interpretation: Normal - General General appearance: Appears well, Alert - HEENT Head: Normocephalic, Atraumatic Eyes: Normal Pupils: PERRL - Respiratory Respiratory status: No respiratory distress Chest status: Nontender Breath sounds: Normal Chest palpation: Normal - Cardiovascular Rhythm: Regular Heart sounds: Normal auscultation Murmur: No - Abdominal Inspection: Normal Distension: No distension Bowel sounds: Normal Tenderness: Nontender Organomegaly: No organomegaly - Back Back: Normal, Nontender - Extremities General upper extremity: Normal inspection, Nontender, Normal color, Normal ROM , Normal temperature General lower extremity: Normal inspection, Nontender, Normal color, Normal ROM , Normal temperature, Normal weight bearing. No: Sofya's sign - Neurological Neuro grossly intact: Yes Cognition: Normal Orientation: AAOx4 [place] Coma Scale Eye Opening: Spontaneous [place] Coma Scale Verbal: Oriented Franc Coma Scale Motor: Obeys Commands [place] Coma Scale Total: 15 Speech: Normal Motor strength normal: LUE, RUE, LLE, RLE Sensory: Normal - Psychological Associated symptoms: Normal affect, Normal mood - Skin Skin Temperature: Warm Skin Moisture: Dry Skin Color: Normal Course - Re-evaluation Re-evalutation: 08/19/16 14:40 The patient presents with abdominal pain without signs of peritonitis or other life-threatening or serious etiology. The patient appears stable for discharge and has been instructed to return immediately if the symptoms worsen in any way , or in 8-12hr if not improved for re-evaluation. The patient has been instructed to return if the symptoms worsen or change in any way.. - Vital Signs Vital signs: Temp Pulse Resp BP Pulse Ox 97.7 F 70 21 H 158/92 H 100 08/19/16 06:23 08/19/16 02:42 08/19/16 09:01 08/19/16 09:01 08/19/16 09:01 - Laboratory Result Diagrams: 08/19/16 03:10 08/19/16 03:10 Laboratory results interpreted by me: 08/19/16 08/19/16 03:10 03:10 RBC 3.95 L Hgb 12.0 L Hct 36.0 L RDW 16.5 H Chloride 110 H Carbon Dioxide 20 L AST 90 H Creatine Kinase 385 H Discharge - Discharge Clinical Impression: Right-sided chest pain Condition: Good Disposition: HOME, SELF-CARE Instructions: Chest Wall Pain ([facility]) Additional Instructions: Your chest x-ray laboratory studies today reveal no critical etiology for your right-sided chest pain. I highly recommend she follow-up with your primary care physician for further evaluation and for more of your medications. He may take Tylenol and Motrin for your pain. I would recommend not to drink anymore alcohol. Prescriptions: Famotidine [Pepcid 20 mg Tablet] 20 mg PO DAILY #14 tablet Isosorbide Mononitrate [Imdur 60 mg Tablet.er] 60 mg PO DAILY #14 tab.sr.24h Lisinopril/Hydrochlorothiazide [Zestoretic 20-12.5 Mg Tablet] 1 each PO DAILY # 14 tablet Metoprolol Tartrate [Lopressor 25 mg Tablet] 25 mg PO Q12 #28 tab Referrals: ASHLEE WATERS MD [Primary Care Provider] - Follow up in 3-5 days
[2016-08-19 09:38] VITALS: BP 158/92
--- NOTE | 2016-08-19 09:50 | EKG REPORT ---
SEVERITY:- ABNORMAL ECG - SINUS RHYTHM CONSIDER LEFT VENTRICULAR HYPERTROPHY BORDERLINE ST ELEVATION, ANTEROLATERAL LEADS : Confirmed by: Landon Ames 19-Aug-2016 09:49:41
== END 2016-08-19 10:00 | disposition home or self-care (01) ==
LOC: ER 02:38
DX: R07.9 Chest pain, unspecified (principal); I25.10 Atherosclerotic heart disease of native coronary artery without angina pectoris; E78.00 Pure hypercholesterolemia, unspecified; I10 Essential (primary) hypertension; J44.9 Chronic obstructive pulmonary disease, unspecified; Z88.6 Allergy status to analgesic agent
CPT/HCPCS: 36415; 71010; 80053; 82550; 82553; 84484; 85025; 93005; 93010; 99285

== ENCOUNTER 2016-11-05 13:05 | Emergency (ER) | payer MEDICARE, MEDICAID ==
[2016-11-05] MEDS ORDERED: ASPIRIN 81 MG TABLET, CHEWABLE PO ONE (13:10)
[2016-11-05 13:34] LABS: ABSOLUTE BASOPHILS # (AUTO) 0.1 10^3/uL (0.0-0.2); ABSOLUTE EOSINOPHILS # (AUTO) 0.1 10^3/uL (0.0-0.6); ABSOLUTE LYMPHOCYTES (AUTO) 1.7 10^3/uL (0.5-4.7); ABSOLUTE MONOCYTES (AUTO) 0.6 10^3/uL (0.1-1.4); ABSOLUTE NEUT (AUTO) 2.8 10^3/uL (1.7-8.2); BASOPHILS % (AUTO) 1.1 % (0-2); HEMATOCRIT 32.9 % (37.9-51.0); HEMOGLOBIN 11.1 g/dL (13.5-17.0); HGB HCT DIFFERENCE 0.4; LYMPHOCYTES % (AUTO) 32.7 % (13-45); MEAN CORPUSCULAR HEMOGLOBIN 30.6 pg (27.0-33.4); MEAN CORPUSCULAR HGB CONC 33.8 g/dL (32.0-36.0); MEAN CORPUSCULAR VOLUME 91 fl (80-97); MONOCYTES % (AUTO) 11.1 % (3-13); RED BLOOD COUNT 3.64 10^6/uL (4.35-5.55); RED CELL DISTRIBUTION WIDTH 16.6 % (11.5-14.0); SEGMENTED NEUTROPHILS % (AUTO) 53.1 % (42-78); WHITE BLOOD COUNT 5.2 10^3/uL (4.0-10.5)
--- NOTE | 2016-11-05 13:56 | RADIOLOGY REPORT (SQ) ---
EXAM DESCRIPTION: CHEST SINGLE VIEW COMPLETED DATE/TIME: 11/05/2016 1:39 pm REASON FOR STUDY: cp COMPARISON: 08/19/2016 EXAM PARAMETERS: NUMBER OF VIEWS: One view. TECHNIQUE: Single frontal radiographic view of the chest acquired. RADIATION DOSE: NA LIMITATIONS: None. FINDINGS: LUNGS AND PLEURA: No opacities, masses or pneumothorax. No pleural effusion. The previous ly described nodular density in the left mid lung field is partially obscured due to overlying ribs b ut appears unchanged MEDIASTINUM AND HILAR STRUCTURES: No masses. Contour normal. HEART AND VASCULAR STRUCTURES: Heart normal in size. Normal vasculature. BONES: No acute findings. HARDWARE: None in the chest. OTHER: No other significant finding. IMPRESSION: No significant interval change. No acute findings. Other findings as noted above TECHNICAL DOCUMENTATION: JOB ID: [id number]
[2016-11-05 13:59] LABS: ALANINE AMINOTRANSFERASE 30 U/L (21-72); ALBUMIN 3.8 g/dL (3.5-5.0); ALKALINE PHOSPHATASE 82 U/L (38-126); ANION GAP 11 (5-19); ASPARTATE AMINO TRANSFERASE 34 U/L (17-59); BILIRUBIN,DIRECT 0.4 mg/dL (0.0-0.4); BILIRUBIN,TOTAL 0.5 mg/dL (0.2-1.3); BLOOD UREA NITROGEN 15 mg/dL (7-20); CALCIUM 9.5 mg/dL (8.4-10.2); CARBON DIOXIDE 21 mmol/L (22-30); CHLORIDE 109 mmol/L (98-107); CREATINE KINASE 259 U/L (55-170); CREATININE RESULT 0.88 mg/dL (0.52-1.25); GLUCOSE 82 mg/dL (75-110); POTASSIUM 4.5 mmol/L (3.6-5.0); SODIUM 141.1 mmol/L (137-145); TOTAL PROTEIN 6.9 g/dL (6.3-8.2)
[2016-11-05 14:00] LABS: LIPASE 155.5 U/L (23-300)
[2016-11-05] MEDS ORDERED: MAG HYDROX/AL HYDROX/SIMETH SUSP 30 ML UDCUP PO ONE (14:07)
[2016-11-05] MEDS ORDERED: LIDOCAINE 2% VISCOUS SOLN 20 ML UDCUP PO ONE (14:07)
[2016-11-05] MEDS ORDERED: METOCLOPRAMIDE HCL ORAL SOLN 10 MG/10 ML UDCUP PO ONE (14:07)
[2016-11-05 14:10] LABS: CREATINE KINASE MB 1.21 ng/mL (<4.55)
[2016-11-05 14:12] LABS: TROPONIN I < 0.012 ng/mL
--- NOTE | 2016-11-05 14:14 | ER Document Report ---
ED General - General Mode of Arrival: Medic Information source: Patient TRAVEL OUTSIDE OF THE [place] IN LAST 30 DAYS: No - HPI Onset: Other - 2 weeks Similar symptoms previously: Yes Recently seen / treated by doctor: Yes <ADDISON DSOUZA - Last Filed: 11/05/16 18:26> <BRY ASKEW - Last Filed: 11/05/16 19:32> - General Chief Complaint: Chest Pain Stated Complaint: CHEST PAIN Time Seen by Provider: 11/05/16 14:00 Notes: Patient is a 60-year-old male presented to the emergency department via EMS for chest pain. Patient has been evaluated in this emergency department on multiple occasions for this symptom and usually leaves AMA. Patient has also been admitted several times and has left AMA. Patient states that this episode of chest pain has been present for 2 weeks constantly. Patient has also had positive alcohol levels multiple times in this emergency department and states that today he had one beer at 8:00 this morning. Patient states his pain is like a "shockwave" or a "punch." Patient is unsure if it might be heartburn or reflux. Patient rides a bicycle that he bought recently and states that riding his bicycle does not change or alter the pain. Patient is a marijuana user and states that he does marijuana to "help his pain and make him feel better." Patient denies any shortness of breath, recent injury trauma or fall, or any bloody stools. Patient is supposed to be taking medications for his heart, previous stroke, and cholesterol however he has not taken his medications for 3 months because he states they are too high in marquez. Patient has also been referred to pain management [address] Rosa however he states he has not gone to see them. Patient states that he did use cocaine about 20 years ago but has not since. Patient's previous visits include: 04/07/2016, 2016 (admit and left AMA), 06/14/2016 (left AMA), 07/17/2016 (left AMA), 2016, and today. PCP Dr. Rosa (ADDISON DSOUZA) - Related Data Allergies/Adverse Reactions: codeine Allergy (Verified 11/05/16 13:37) Home Medications: Current Home Medications No Home Medications 11/05/16 [History] Past Medical History - General Information source: Patient - Social History Smoking Status: Current Every Day Smoker Chew tobacco use (# tins/day): No Frequency of alcohol use: Heavy Drug Abuse: Marijuana Family History: CAD, Hypertension Patient has suicidal ideation: No Patient has homicidal ideation: No - Past Medical History Cardiac Medical History: Reports: Hx Coronary Artery Disease, Hx Hypercholesterolemia, Hx Hypertension Pulmonary Medical History: Reports: Hx Bronchitis, Hx COPD, Hx Pneumonia GI Medical History: Reports: Hx Cirrhosis Musculoskeltal Medical History: Reports Hx Arthritis - Hands, arms Traumatic Medical History: Reports: Hx Fractures Past Surgical History: Reports: Hx Cardiac Catheterization - 2 stents, Hx Orthopedic Surgery - bilat arms - Immunizations Immunizations up to date: Yes Hx Diphtheria, Pertussis, Tetanus Vaccination: Yes <ADDISON DSOUZA - Last Filed: 11/05/16 18:26> Review of Systems - Review of Systems Constitutional: No symptoms reported EENT: No symptoms reported Cardiovascular: See HPI, Chest pain Respiratory: No symptoms reported Gastrointestinal: See HPI, Abdominal pain Genitourinary: No symptoms reported Male Genitourinary: No symptoms reported Musculoskeletal: No symptoms reported Skin: No symptoms reported Hematologic/Lymphatic: No symptoms reported Neurological/Psychological: No symptoms reported -: Yes All other systems reviewed and negative <ADDISON DSOUZA - Last Filed: 11/05/16 18:26> Physical Exam - Vital signs Interpretation: Normal <ADDISON DSOUZA - Last Filed: 11/05/16 18:26> <BRY ASKEW - Last Filed: 11/05/16 19:32> - Vital signs Vitals: Temp Pulse Resp BP Pulse Ox 98.1 F 78 16 131/81 H 99 11/05/16 13:15 11/05/16 13:15 11/05/16 13:15 11/05/16 13:15 11/05/16 13:15 - Notes Notes: GENERAL: Alert, interacts well. Mild distress. HEAD: Normocephalic, atraumatic. EYES: Appear normal. Pupils equal, round, and reactive to light. ENT: Moist mucus membranes, tongue midline. Poor dentition. NECK: Full range of motion. Supple. Trachea midline. LUNGS: Clear to auscultation bilaterally, no wheezes, rales, or rhonchi. No respiratory distress. Anterior chest wall tenderness to palpation. HEART: Regular rate and rhythm. No murmurs, gallops, or rubs. ABDOMEN: Soft, mild epigastric tenderness to palpation. Non-distended. Normal bowel sounds. EXTREMITIES: Moves all 4 extremities spontaneously. Normal strength. No edema. NEUROLOGICAL: Alert and oriented x3. Speech at baseline with a heavy accent. No focal neurological deficits. GSC 15. PSYCH: Normal affect, normal mood. SKIN: Warm, dry, normal turgor. No rashes or lesions noted. (ADDISON DSOUZA) Course - Laboratory Result Diagrams: 11/05/16 13:20 11/05/16 13:20 <ADDISON DSOUZA - Last Filed: 11/05/16 18:26> - Laboratory Result Diagrams: 11/05/16 13:20 11/05/16 13:20 <BRY ASKEW - Last Filed: 11/05/16 19:32> - Vital Signs Vital signs: Temp Pulse Resp BP Pulse Ox 98.1 F 78 22 H 150/89 H 100 11/05/16 13:15 11/05/16 13:15 11/05/16 16:00 11/05/16 15:01 11/05/16 16:00 - Laboratory Laboratory results interpreted by me: 11/05/16 11/05/16 13:20 13:20 RBC 3.64 L Hgb 11.1 L Hct 32.9 L RDW 16.6 H Chloride 109 H Carbon Dioxide 21 L Creatine Kinase 259 H Discharge <ADDISON DSOUZA - Last Filed: 11/05/16 18:26> <BRY ASKEW - Last Filed: 11/05/16 19:32> - Discharge Clinical Impression: Chest pain Qualifiers: Chest pain type: unspecified Qualified Code(s): R07.9 - Chest pain, unspecified Condition: Stable Disposition: HOME, SELF-CARE Instructions: Chest Wall Pain ([facility]) Additional Instructions: Chest Pain of Unclear Cause The exact cause of your chest pain isn't clear. Fortunately, there is no evidence of a dangerous medical condition. Further testing may be required to find the source of the pain. Most often, we find that this pain is coming from the chest wall -- the muscles or rib joints in the chest. But chest pain can come from the lung and lung lining, the esophagus, the heart valves or heart lining, and even the stomach or gallbladder. Rest. Eat lightly until the pain is gone. We may prescribe medicine for pain and inflammation. You should call the physician immediately if the pain radiates to the shoulder, jaw or arms; if you start to run a fever or develop a cough; or if you develop shortness of breath, or other new or alarming symptoms. Referrals: [facility] [Provider Group] - Follow up in 3-5 days Scribe Documentation - Scribe Written by Marah:: Marah Greer, 11/05/2016 1500 acting as scribe for :: Bogdan <ADDISON DSOUZA - Last Filed: 11/05/16 18:26>
[2016-11-05 16:22] VITALS: BP 150/89
[2016-11-05 16:34] LABS: URINE BARBITURATES SCREEN NEGATIVE; URINE METHADONE SCREEN NEGATIVE; URINE OPIATES LOW UNCONFIRMED POSITIVE; URINE PHENCYCLIDINE SCREEN NEGATIVE
--- NOTE | 2016-11-05 20:23 | EKG REPORT ---
SEVERITY:- BORDERLINE ECG - SINUS RHYTHM BORDERLINE LEFT AXIS DEVIATION BORDERLINE R WAVE PROGRESSION, ANTERIOR LEADS ST ELEVATION, ANTERIOR LEADS, HYPERACUTE T, HYPERKALEMIA, LVH IN DD, SIMILAR TO EKG FROM 08/19/2016 : Confirmed by: Landon Ames 05-Nov-2016 20:23:08
== END 2016-11-05 16:30 | disposition home or self-care (01) ==
LOC: ER 13:05
DX: R07.9 Chest pain, unspecified (principal); F17.200 Nicotine dependence, unspecified, uncomplicated; I25.10 Atherosclerotic heart disease of native coronary artery without angina pectoris; E78.00 Pure hypercholesterolemia, unspecified; I10 Essential (primary) hypertension; J44.9 Chronic obstructive pulmonary disease, unspecified
CPT/HCPCS: 93005; 99285; 36415; 82553; 80307 ×2; 82550; 83690; 85025; 80053; 84484; 71010; 93010; J3490; A9270

== ENCOUNTER 2017-05-30 00:58 | Observation (INO) | payer MEDICARE, MEDICAID ==
[2017-05-30] MEDS ORDERED: NITROGLYCERIN 2% OINTMENT 1 GM PACKET TP ONE (01:12)
--- NOTE | 2017-05-30 01:16 | ER Document Report ---
ED General - General Stated Complaint: CHEST PAIN Time Seen by Provider: 05/30/17 01:03 Notes: Patient is a 61-year-old male who presents with complaint of chest pain. Patient's history of coronary disease and has 2 stents replaced 2 years ago in [place]. He is to be followed by Dr. Rosa but has been in retirement for last 4 months. Said pain came on suddenly tonight. He says that it is left side and started radiating towards substernal area. Also some numbness going into his jaw. He says he has some shortness of breath but "always feel short of breath". Denies any fevers. No other complaints this time. He was last admitted back in May of last year. At that time he supposed undergo stress test but left AMA for receiving a stress test. He has been in retirement for a little over 4 months. He has not smoked or done drugs since being in retirement. He says he is on 1 "heart pill". He does not know what it is. In the ambulance he received 324 mg of aspirin as well as seminal nitro. He says this did improve his pain. He says he has only slight pain now. TRAVEL OUTSIDE OF THE [place] IN LAST 30 DAYS: No - Related Data Allergies/Adverse Reactions: codeine Allergy (Verified 11/05/16 13:37) Past Medical History - Social History Smoking Status: Former Smoker Frequency of alcohol use: None Drug Abuse: None Family History: CAD, Hypertension - Past Medical History Cardiac Medical History: Reports: Hx Coronary Artery Disease, Hx Hypercholesterolemia, Hx Hypertension Denies: Hx Heart Attack Pulmonary Medical History: Reports: Hx Bronchitis, Hx COPD, Hx Pneumonia Denies: Hx Asthma Neurological Medical History: Denies: Hx Cerebrovascular Accident, Hx Seizures Renal/ Medical History: Denies: Hx Peritoneal Dialysis GI Medical History: Reports: Hx Cirrhosis Musculoskeltal Medical History: Reports Hx Arthritis - Hands, arms Traumatic Medical History: Reports: Hx Fractures Past Surgical History: Reports: Hx Cardiac Catheterization - 2 stents, Hx Orthopedic Surgery - bilat arms - Immunizations Immunizations up to date: Yes Hx Diphtheria, Pertussis, Tetanus Vaccination: Yes Review of Systems - Review of Systems Notes: My Normal Review Basic REVIEW OF SYSTEMS: CONSTITUTIONAL : Denies fever, chills, or sweats. Denies recent illness. EENT: Denies eye, ear, throat, or mouth pain or symptoms. Denies nasal or sinus congestion. CARDIOVASCULAR: Chest pain RESPIRATORY: Chronic shortness of breath. GASTROINTESTINAL: Denies abdominal pain. Denies nausea, vomiting, or diarrhea. MUSCULOSKELETAL: Denies neck or back pain or joint pain or swelling. SKIN: Denies rash or skin lesions. NEUROLOGICAL: Denies altered mental status or loss of consciousness. Denies headache. Denies weakness or paralysis or loss of use of either side. Denies problems with gait or speech. Denies sensory or motor loss. ALL OTHER SYSTEMS REVIEWED AND NEGATIVE. Physical Exam - Vital signs Vitals: Resp 15 05/30/17 01:05 - Notes Notes: General Appearance: Well nourished, alert, cooperative, no acute distress, no obvious discomfort. Well-appearing. Vitals: reviewed, See vital signs table. Head: no swelling or tenderness to the head Eyes: PERRL, EOMI, Conjuctiva clear Mouth: No decreasd moisture Lungs: No wheezing, No rales, No rhonci, No accessory muscle use, good air exchange bilaterally. Heart: Normal rate, Regular rythm, No murmur, no rub Abdomen: Normal BS, soft, No rigidity, No abdominal tenderness, No guarding, no rebound, no abdominal masses, no organomegaly Extremities: strength 5/5 in all extremities, good pulses in all extremities, no swelling or tenderness in the extremities, no edema. Skin: warm, dry, appropriate color, no rash Neuro: speech clear, oriented x 3, normal affect, responds appropriately to questions. Course - Re-evaluation Re-evalutation: 05/30/17 02:05 Patient's chest pain is resolved with nitro. His initial EKG and cardiac enzymes are non-concerning. Due to his history of coronary disease chest pain relieved with nitroglycerin I feel it is appropriate to admit him. My other concern is also the patient has been scheduled the past for stress testing however he is left AMA each time. I informed patient that I am willing to him again and I recommended however he really needs to stay for potential stress test of it is recommended for him by the paint sprayer sandblaster or Dr. Rosa. Patient says he agrees to stay this time. I did speak with Dr. Rosa who agrees to admit the patient. Dictation of this chart was performed using voice recognition software; therefore, there may be some unintended grammatical errors. - Vital Signs Vital signs: Temp Pulse Resp BP Pulse Ox 97.6 F 11 L 115/78 05/30/17 01:07 05/30/17 01:07 05/30/17 01:07 - Laboratory Result Diagrams: 05/30/17 01:10 05/30/17 01:10 Laboratory results interpreted by me: 05/30/17 01:10 RBC 4.16 L Hgb 12.6 L Hct 37.7 L RDW 15.1 H Seg Neutrophils % 35.1 L Lymphocytes % 46.4 H Monocytes % 13.8 H - EKG Interpretation by Me Additional EKG results interpreted by me: 05/30/17 01:12 EKG is reviewed and interpreted by me. EKG shows normal sinus rhythm with a rate of [address] bpm. There [address] segment elevation or depression. Patient does have some abnormal R-wave progression which is unchanged comparison to his old EKG from November 05, 2016. LA interval, QRS duration, QTc intervals are within normal range. Discharge - Discharge Clinical Impression: Chest pain Qualifiers: Chest pain type: unspecified Qualified Code(s): R07.9 - Chest pain, unspecified Condition: Stable Disposition: ADMITTED OBSERVATION Admitting Provider: [facility] Unit Admitted: Telemetry
[2017-05-30 01:24] LABS: ABSOLUTE BASOPHILS # (AUTO) 0.1 10^3/uL (0.0-0.2); ABSOLUTE EOSINOPHILS # (AUTO) 0.2 10^3/uL (0.0-0.6); ABSOLUTE LYMPHOCYTES (AUTO) 2.7 10^3/uL (0.5-4.7); ABSOLUTE MONOCYTES (AUTO) 0.8 10^3/uL (0.1-1.4); BASOPHILS % (AUTO) 0.9 % (0-2); EOSINOPHILS % (AUTO) 3.8 % (0-6); HEMATOCRIT 37.7 % (37.9-51.0); HEMOGLOBIN 12.6 g/dL (13.5-17.0); LYMPHOCYTES % (AUTO) 46.4 % (13-45); MEAN CORPUSCULAR HEMOGLOBIN 30.3 pg (27.0-33.4); MEAN CORPUSCULAR HGB CONC 33.4 g/dL (32.0-36.0); MEAN CORPUSCULAR VOLUME 91 fl (80-97); MONOCYTES % (AUTO) 13.8 % (3-13); PLATELET COUNT 316 10^3/uL (150-450); RED BLOOD COUNT 4.16 10^6/uL (4.35-5.55); RED CELL DISTRIBUTION WIDTH 15.1 % (11.5-14.0); SEGMENTED NEUTROPHILS % (AUTO) 35.1 % (42-78); TOTAL CELLS COUNTED % (AUTO) 100 %; WHITE BLOOD COUNT 5.8 10^3/uL (4.0-10.5)
[2017-05-30 01:35] LABS: ALANINE AMINOTRANSFERASE 35 U/L (21-72); ALBUMIN 4.1 g/dL (3.5-5.0); ALKALINE PHOSPHATASE 75 U/L (38-126); ANION GAP 8 (5-19); ASPARTATE AMINO TRANSFERASE 25 U/L (17-59); BILIRUBIN,DIRECT 0.4 mg/dL (0.0-0.4); BILIRUBIN,TOTAL 0.4 mg/dL (0.2-1.3); BLOOD UREA NITROGEN 14 mg/dL (7-20); CALCIUM 9.9 mg/dL (8.4-10.2); CARBON DIOXIDE 27 mmol/L (22-30); CHLORIDE 105 mmol/L (98-107); GLUCOSE 80 mg/dL (75-110); POTASSIUM 4.2 mmol/L (3.6-5.0); SODIUM 140.3 mmol/L (137-145); TOTAL PROTEIN 7.5 g/dL (6.3-8.2)
--- NOTE | 2017-05-30 01:47 | RADIOLOGY REPORT (SQ) ---
EXAM DESCRIPTION: CHEST SINGLE VIEW CLINICAL HISTORY: 61 years Male, Chest pain COMPARISON: 11/05/2016 NUMBER OF VIEWS/TECHNIQUE: 1/AP LIMITATIONS: None. FINDINGS: Normal lung volume, clear parenchyma, normal cardiac silhouette, and intact bony thorax. IMPRESSION: No acute cardiopulmonary findings.
--- NOTE | 2017-05-30 07:26 | EKG REPORT ---
SEVERITY:- ABNORMAL ECG - SINUS RHYTHM ABNRM R PROG, CONSIDER ASMI OR LEAD PLACEMENT : Confirmed by: Cezar Ngo MD 30-May-2017 07:26:10
[2017-05-30 07:31] LABS: CREATINE KINASE MB 0.37 ng/mL (<4.55)
[2017-05-30 07:36] LABS: TROPONIN I < 0.012 ng/mL
[2017-05-30] MEDS ORDERED: ASPIRIN 81 MG TABLET, CHEWABLE PO ONE (08:30)
[2017-05-30] MEDS: HYDROCHLOROTHIAZIDE 25 MG TABLET PO SCH (10:41)
[2017-05-30] MEDS: ENOXAPARIN SODIUM INJ 40 MG/0.4 ML DISP.SYRIN SUBCUT SCH (10:42)
[2017-05-30 12:41] LABS: TROPONIN I < 0.012 ng/mL
[2017-05-30 17:44] LABS: CREATINE KINASE MB 0.26 ng/mL (<4.55)
[2017-05-30 17:49] LABS: TROPONIN I < 0.012 ng/mL
--- NOTE | 2017-05-30 20:43 | PDOC H&P ---
History of Present Illness Admission Date/PCP: 05/30/17 02:25 History of Present Illness: CAROLINE FLORES is a 61 year old male,He has a history of coronary artery disease [facility] ,he was brought to the emergency room by the for evaluation of chest pain of over a month duration. The chest pain is not typical, it is a sharp chest pain, he stated that the chest pain radiated to the head and neck area. He has not been taking any anti- ischemic drug since he has been in the detention Past Medical History Cardiac Medical History: Reports: Coronary Artery Disease, Hyperlipidema, Hypertension Pulmonary Medical History: Reports: Bronchitis, Chronic Obstructive Pulmonary Disease (COPD), Pneumonia Musculoskeltal Medical History: Reports: Arthritis - Hands, arms Past Surgical History Past Surgical History: Reports: Cardiac Catheterization - 2 stents, Orthopedic Surgery - bilat arms Social History Smoking Status: Former Smoker Frequency of Alcohol Use: Occasional Hx Recreational Drug Use: Yes Drugs: Marijuana Hx Prescription Drug Abuse: No Family History Family History: CAD, Hypertension Parental Family History Reviewed: Yes Children Family History Reviewed: Yes Sibling(s) Family History Reviewed.: Yes Medication/Allergy Home Medications: Nitroglycerin [Nitrostat 0.4 mg (1/150 Gr) Tabs 25/Bottle] 0.4 mg SL Q5MP PRN Aspirin [Adult Low Dose Aspirin EC] 81 mg PO DAILY #90 05/31/17 Atorvastatin Calcium [Lipitor 40 mg Tablet] 40 mg PO QHS #90 tablet 05/31/17 Bisacodyl [Dulcolax 5 Mg Tablet] 5 mg PO DAILY #90 tabec 05/31/17 Metoprolol Succinate [Toprol Xl 25 mg Tab.sr] 25 mg PO DAILY #90 tab.sr.24h Allergies/Adverse Reactions: codeine Allergy (Verified 11/05/16 13:37) Review of Systems Constitutional: ABSENT: as per HPI, anorexia, chills, fatigue, fever(s), headache(s), night sweats, weakness, weight gain, weight loss, other Eyes: ABSENT: visual disturbances Ears: ABSENT: hearing changes Cardiovascular: PRESENT: chest pain Respiratory: ABSENT: cough, hemoptysis Gastrointestinal: PRESENT: constipation Genitourinary: ABSENT: dysuria, hematuria Musculoskeletal: ABSENT: joint swelling Integumentary: ABSENT: rash, wounds Neurological: ABSENT: abnormal gait, abnormal speech, confusion, dizziness, focal weakness, syncope Psychiatric: ABSENT: anxiety, depression, homidical ideation, suicidal ideation Endocrine: ABSENT: cold intolerance, heat intolerance, menstrual abnormalities, polydipsia, polyuria Hematologic/Lymphatic: ABSENT: easy bleeding, easy bruising, lymphadenopathy Physical Exam Vital Signs: Temp Pulse Resp BP Pulse Ox 98.5 F 65 16 108/69 100 05/30/17 15:05 05/30/17 15:05 05/30/17 15:05 05/30/17 15:05 05/30/17 15:05 Intake & Output 05/29/17 05/30/17 05/31/17 06:59 06:59 06:59 Intake Total 240 540 Output Total 1300 Balance 240 -760 Weight 67.132 kg General appearance: PRESENT: no acute distress Head exam: PRESENT: atraumatic, normocephalic Eye exam: PRESENT: conjunctiva pink, EOMI, PERRLA Ear exam: PRESENT: normal external ear exam Mouth exam: PRESENT: moist, tongue midline Neck exam: PRESENT: full ROM Respiratory exam: PRESENT: clear to auscultation ericka Cardiovascular exam: PRESENT: RRR, +S1, +S2 Pulses: PRESENT: normal dorsalis pedis pul, +2 pedal pulses bilateral Vascular exam: PRESENT: normal capillary refill GI/Abdominal exam: PRESENT: normal bowel sounds, soft Rectal exam: PRESENT: deferred Neurological exam: PRESENT: alert Psychiatric exam: PRESENT: appropriate affect, normal mood Skin exam: PRESENT: dry, intact, warm Results Laboratory Results: 05/30/17 05/30/17 05/30/17 06:15 06:15 11:43 Creatine Kinase 109 104 CK-MB (CK-2) 0.37 Troponin I < 0.012 05/30/17 05/30/17 05/30/17 11:43 16:50 16:50 Creatine Kinase 119 CK-MB (CK-2) 0.40 0.26 Troponin I < 0.012 < 0.012 Impressions: Chest X-Ray 05/30/17 01:12 IMPRESSION: No acute cardiopulmonary findings. Assessment & Plan - Diagnosis (1) Chest pain Qualifiers: Chest pain type: unspecified Qualified Code(s): R07.9 - Chest pain, unspecified Is this a current diagnosis for this admission?: Yes Plan: Patient is admitted for observation management (2) Coronary artery disease Qualifiers: Coronary Disease-Associated Artery/Lesion type: [place] artery [place] vs. transplanted heart: [place] heart Associated angina: without angina Qualified Code(s): I25.10 - Atherosclerotic heart disease of [place] coronary artery without angina pectoris Is this a current diagnosis for this admission?: Yes
[2017-05-30] MEDS ORDERED: ATORVASTATIN CALCIUM 40 MG TABLET PO SCH (22:00)
[2017-05-31] MEDS ORDERED: ASPIRIN 81 MG TABLET, CHEWABLE PO SCH (10:00)
[2017-05-31] MEDS ORDERED: METOPROLOL SUCCINATE 25 MG TAB.SR.24H PO SCH (10:00)
[2017-05-31] MEDS: HYDROCHLOROTHIAZIDE 25 MG TABLET PO SCH (11:43)
[2017-05-31] MEDS: ENOXAPARIN SODIUM INJ 40 MG/0.4 ML DISP.SYRIN SUBCUT SCH (11:44)
--- NOTE | 2017-05-31 14:22 | DRAGON STRESS TEST REPORT ---
INTRAVENOUS LEXISCAN CARDIOLITE STRESS TEST USING SINGLE PHOTON EMMISION COMPUTERIZED TOMOGRAPHIC. DATE OF PROCEDURE: May 31, 2017, INDICATION : Chest pain CARDIAC RISK FACTORS: Hypertension, dyslipidemia RESTING EKG: Sinus rhythm without any baseline ST-T wave changes STRESS EKG: No significant changes noted with LexiScan bolus REASON FOR TERMINATION: Protocol. PROCEDURE REPORT: Baseline heart rate 88 beats per minute with blood pressure of 107/72. Patient had no significant complaints. Patient was given 0.4 mg of Lexiscan bolus. Patient also made to do leg raising exercises, which patient performed very vigorously. Heart rate at 2 minutes post bolus 113 with a blood pressure of 155/75. 3 minutes post bolus heart rate 104 with blood pressure of 122/66. No significant EKG changes were noted. Patient had no significant complaints during the procedure or postprocedure. Patient injected with Aminophyllin 75 mg at 3 minutes or later after Lexiscan bolus. CONCLUSIONS: Normal EKG and hemodynamic response to IV LexiScan. NUCLEAR DATA: At rest the patient was given 10.66 millicuries of technetium 99 sestamibi injected intravenously. As per protocol rest gated SPECT images were obtained. On day of stress test, the patient was given intravenous LexiScan at a dose of 0.4 mg in 5 mL intravenously, followed by flush with normal saline. Subsequently the stress dose of 32.1 millicuries of technetium 99 sestamibi was injected intravenously. As per protocol stress gated images were obtained. NUCLEAR INTERPRETATION: Both raw and processed data were used for interpretation. Visual, qualitative, computer-generated quantitative data was used. There was good myocardial uptake of technetium compound. Motion artifact and soft tissue attenuations were noted. Increased visceral uptake was noted. No definitive areas of transient perfusion defect noted, No definitive areas of fixed perfusion defect or scars noted. EKG gated imaging showed LV EF at 48 %, rest and stress gated EF similar visually. T. I D. ratio was 1.35. Lung heart ratio noted to be within normal limits 0.28. No significant extracardiac and abnormal radiotracer activities were noted. RV free wall uptake was noted to be WNL. IMPRESSION: Also refer to comments under nuclear interpretation. Also test results needs to be interpreted in the context of pretest probability. 1. No definitive areas of transient perfusion defect noted. 2. There is no definitive scintigraphic evidence of myocardial infarction/scar. 3. EKG gated imaging shows left ventricular ejection fraction of approx. 48 %. 4. 3 times daily ratio is noted to be high consistent with mild transient ischemic dilatation. Patient was made supine exercise which can lead to larger LV cavity size with stress imaging. Also most recent literature review shows that there are no significant increased cardiovascular event risk in the absence of significant perfusion defect. Clinical correlation requested as occasionally single vessel disease or balanced ischemia could be missed. In approximately 10% of the cases Lexiscan may not cause adequate vasodilatory stress. RECOMMENDATIONS: Aggressive risk factor modification and medical management. Further evaluation may be needed if continued symptoms or other high risk indicators are noted on clinical evaluation. Close cardiology follow-up is also recommended. Clinical correlation with echocardiogram derived ejection fraction. Inability to exercise by itself can lead to increased cardiovascular event risks. Consider cardiology consultation and or follow-up if clinically indicated. I am available for cardiology evaluation and consultation if requested by the surfacer, unless patient already has a manuscripts curator. LIS
[2017-05-31] MEDS ORDERED: REGADENOSON INJ 0.4 MG/5 ML DISP.SYRIN IV ONE (15:52)
[2017-05-31] MEDS ORDERED: AMINOPHYLLINE INJ/PF 250 MG/10 ML SDV IV ONE (15:52)
--- NOTE | 2017-05-31 16:53 | PDOC DISCHARGE SUMMARY ---
General - Admit/Disc Date/PCP Admission Date/Primary Care Provider: 05/30/17 02:25 Discharge Date: 05/31/17 - Discharge Diagnosis (1) Chest pain Is this a current diagnosis for this admission?: Yes (2) Coronary artery disease Is this a current diagnosis for this admission?: Yes - Additional Information Prescriptions: Atorvastatin Calcium [Lipitor 40 mg Tablet] 40 mg PO QHS #90 tablet Bisacodyl [Dulcolax 5 Mg Tablet] 5 mg PO DAILY #90 tabec Metoprolol Succinate [Toprol Xl 25 mg Tab.sr] 25 mg PO DAILY #90 tab.sr.24h Home Medications: Nitroglycerin [Nitrostat 0.4 mg (1/150 Gr) Tabs 25/Bottle] 0.4 mg SL Q5MP PRN Aspirin [Adult Low Dose Aspirin EC] 81 mg PO DAILY #90 05/31/17 Atorvastatin Calcium [Lipitor 40 mg Tablet] 40 mg PO QHS #90 tablet 05/31/17 Bisacodyl [Dulcolax 5 Mg Tablet] 5 mg PO DAILY #90 tabec 05/31/17 Metoprolol Succinate [Toprol Xl 25 mg Tab.sr] 25 mg PO DAILY #90 tab.sr.24h History of Present Illness History of Present Illness: CAROLINE FLORES is a 61 year old male,He has a history of coronary artery disease presently in the [facility] ,he was brought to the emergency room by the for evaluation of chest pain of over a month duration. The chest pain is not typical, it is a sharp chest pain, he stated that the chest pain radiated to the head and neck area. He has not been taking any anti- ischemic drug since he has been in the [facility] Hospital Course Hospital Course: Patient was admitted for evaluation of chest pain, history of ischemic heart disease, a Cardiolite Lexiscan stress test was done there was no acute reversibility to suggest ischemia. He also complained of constipation Physical Exam Vital Signs: Temp Pulse Resp BP Pulse Ox 97.9 F 84 17 138/87 H 100 05/31/17 15:21 05/31/17 15:21 05/31/17 15:21 05/31/17 15:21 05/31/17 15:21 Intake & Output 05/30/17 05/31/17 06/01/17 06:59 06:59 06:59 Intake Total 240 900 Output Total 1300 Balance 240 -400 Weight 67.132 kg General appearance: PRESENT: no acute distress Eye exam: PRESENT: PERRLA Respiratory exam: PRESENT: clear to auscultation ericka Cardiovascular exam: PRESENT: +S1, +S2 GI/Abdominal exam: PRESENT: soft Neurological exam: PRESENT: alert Results Laboratory Results: 05/30/17 05/30/17 05/30/17 06:15 06:15 11:43 Creatine Kinase 109 104 CK-MB (CK-2) 0.37 Troponin I < 0.012 05/30/17 05/30/17 05/30/17 11:43 16:50 16:50 Creatine Kinase 119 CK-MB (CK-2) 0.40 0.26 Troponin I < 0.012 < 0.012 Impressions: Chest X-Ray 05/30/17 01:12 IMPRESSION: No acute cardiopulmonary findings. Qualifiers - * PATEINT BEING DISCHARGED WITH ANY OF THE FOLLOWING DIAGNOSIS?: No
[2017-05-31 17:41] VITALS: BP 104/74
== END 2017-05-31 17:55 ==
LOC: ER 00:58 → EH 02:25 → 4S 03:37
PROVIDERS: ADMIT Internal Medicine; ATTEND Internal Medicine
DX: R07.9 Chest pain, unspecified (principal); I25.10 Atherosclerotic heart disease of native coronary artery without angina pectoris; K59.00 Constipation, unspecified; E78.5 Hyperlipidemia, unspecified; I10 Essential (primary) hypertension; R20.0 Anesthesia of skin; R06.02 Shortness of breath; Z87.01 Personal history of pneumonia (recurrent); Z95.5 Presence of coronary angioplasty implant and graft; Z87.891 Personal history of nicotine dependence; Z82.49 Family history of ischemic heart disease and other diseases of the circulatory system
CPT/HCPCS: 93005; 99285; 36415; 82553; 82550; 85025; 80053; 84484; 93017; 71045; 78452; 93010; A9500; J2785; A9270 ×4; J1650 ×2; J0280; Q9969

== ENCOUNTER 2019-08-07 10:53 | Emergency (ER) | payer MEDICARE, MEDICAID ==
[2019-08-07 11:11] VITALS: BP 157/86
--- NOTE | 2019-08-07 11:22 | ER Document Report ---
ED Medical Screen (RME) - General Stated Complaint: CHEST PAIN Time Seen by Provider: 08/07/19 11:13 Mode of Arrival: Ambulatory Information source: Patient Notes: 63-year-old male with history of cardiac disease presents to the emergency department sent over from Dr. Rosa's office. Patient is unsure why he is here. Patient is very irritated. Patient reports last time he had issues with his heart he had to be sent to another hospital so he does not know why he is here. He denies chest pain shortness of breath. He reports he feels fine. I contacted Dr. Rosa. He reports he sent patient over here because he has acute T wave changes on his EKG that was done at his office. I instructed Dr Rosa that patient does not want to stay. Patient is very irate. He reports he feels fine he is refusing to stay for any type of treatment. He was instructed on possible repercussions of leaving without treatment to include . The patient has decided not to proceed with further recommended testing or treatment to determine the cause of their symptoms. The risks and alternatives were discussed and the patient verbalized understanding. The patient appears clinically to have the capacity to make this decision. Patient was instructed that he/she could return to the emergency department at any time to complete the testing treatment. Patient verbalized understanding and left. TRAVEL OUTSIDE OF THE [place] IN LAST 30 DAYS: No - Related Data Allergies/Adverse Reactions: codeine Allergy (Verified 11/05/16 13:37) Past Medical History - General Information source: Patient - Past Medical History Cardiac Medical History: Reports: Hx Coronary Artery Disease, Hx Hypercholesterolemia, Hx Hypertension Denies: Hx Heart Attack Pulmonary Medical History: Reports: Hx Bronchitis, Hx COPD, Hx Pneumonia Denies: Hx Asthma Neurological Medical History: Denies: Hx Cerebrovascular Accident, Hx Seizures Renal/ Medical History: Denies: Hx Peritoneal Dialysis GI Medical History: Reports: Hx Cirrhosis Musculoskeltal Medical History: Reports Hx Arthritis - Hands, arms Traumatic Medical History: Reports: Hx Fractures Past Surgical History: Reports: Hx Cardiac Catheterization - 2 stents, Hx Orthopedic Surgery - bilat arms - Immunizations Immunizations up to date: Yes Hx Diphtheria, Pertussis, Tetanus Vaccination: Yes Review of Systems - Review of Systems Notes: Review HPI for review of systems., All other systems negative Physical Exam - Vital signs Vitals: Temp Pulse Resp BP Pulse Ox 98.5 F 72 18 157/86 H 100 08/07/19 11:10 08/07/19 11:10 08/07/19 11:10 08/07/19 11:10 08/07/19 11:10 - General General appearance: Alert In distress: None - Respiratory Respiratory status: No respiratory distress - Psychological Associated symptoms: Normal affect Course - Re-evaluation Re-evalutation: 08/07/19 13:48 63-year-old male with history of cardiac disease presents to the emergency department sent over by Dr. Rosa's office. Patient is very irate he does not know why he is here. I did contact Dr. Rosa who reports he did a EKG in his office and patient had acute T wave changes. I did discuss this with the patient. I discussed what T wave changes meant. Patient is not interested. He keeps repeating he does not hurt he does not know why he is here. Limited physical exam completed due to patient's irritation. Patient demanded to leave. Patient was educated on repercussions if he leaves to include having a heart attack or dying. Patient reports he did not care, he was leaving. He was instructed to follow-up with Dr. Rosa or return here immediately for any concerns. He did verbalize understanding. - Vital Signs Vital signs: Temp Pulse Resp BP Pulse Ox 98.5 F 72 18 157/86 H 100 08/07/19 11:12 08/07/19 11:10 08/07/19 11:10 08/07/19 11:10 08/07/19 11:10 - EKG Interpretation by Sc EKG shows normal: Sinus rhythm Rate: Normal Additional EKG results interpreted by co: 08/07/19 13:[address] elevation Doctor's Discharge - Discharge Clinical Impression: Chest pain Condition: Stable Disposition: AGAINST MEDICAL ADVICE Additional Instructions: *You have been sent to the emergency department for evaluation of EKG changes You have decided to leave AGAINST MEDICAL ADVICE without treatment or evaluation *Follow up with Dr. Rosa as soon as possible *Return to ED for chest pain shortness of breath concerns
--- NOTE | 2019-08-07 18:52 | EKG REPORT ---
SEVERITY:- NORMAL ECG - SINUS RHYTHM : Confirmed by: Lilliana Steel MD 07-Aug-2019 18:51:55
== END 2019-08-07 11:30 | disposition left against medical advice (07) ==
LOC: ER 10:53
DX: R07.9 Chest pain, unspecified (principal); I25.10 Atherosclerotic heart disease of native coronary artery without angina pectoris; E78.00 Pure hypercholesterolemia, unspecified; I10 Essential (primary) hypertension; J44.9 Chronic obstructive pulmonary disease, unspecified; Z88.6 Allergy status to analgesic agent
CPT/HCPCS: 93005; 93010; 99284